=== PATIENT | female | born 1985 | race African-American/Black ===

== ENCOUNTER 2017-03-11 18:08 | Emergency (ER) | payer SELFPAY | END 2017-03-11 18:56 | disposition home or self-care (01) | LOC: ERS 18:08 | DX: K56.41 Fecal impaction (principal); E66.9 Obesity, unspecified; J45.909 Unspecified asthma, uncomplicated; F17.210 Nicotine dependence, cigarettes, uncomplicated | CPT/HCPCS: 99283 ==

== ENCOUNTER 2017-03-12 09:28 | Emergency (ER) | payer SELFPAY ==
[2017-03-12] MEDS ORDERED: Fleet Enema 133 ML BOT PR SCH (10:15)
--- NOTE | 2017-03-12 10:58 | RAD ---
ABDOMEN TWO VIEWS WITH ONE VIEW CHEST RADIOGRAPH: History: Pain. Comparison: Chest two view, 04-03-16. FINDINGS: The lingular opacity has improved. No focal airspace consolidation, pneumothorax, or effusion. On the upright view, no free air in the hemidiaphragms. No dilated air filled loops of large or small bowel. IMPRESSION: 1. Improved lingular opacity. 2. No acute intravascular or intraabdominal abnormality. POS: [facility]
[2017-03-12] MEDS ORDERED: Ondansetron ODT 8 MG TAB ONE (11:47)
[2017-03-12 12:27] LABS: BHCG - Serum Negative (NEGATIVE); Pregs Control Background? CLEAR/WHITE (CLR/WHITE); Pregs Control Bar Appear? YES (CONTROL BAR)
[2017-03-12] MEDS ORDERED: Ketorolac Tromethamine 30 MG/ML VIAL ONE (12:57)
== END 2017-03-12 13:24 | disposition home or self-care (01) ==
LOC: ERS 09:28
DX: K59.00 Constipation, unspecified (principal); J45.909 Unspecified asthma, uncomplicated; F17.210 Nicotine dependence, cigarettes, uncomplicated; Z79.899 Other long term (current) drug therapy
CPT/HCPCS: 36415; 74022; 84703; 96372; J1885

== ENCOUNTER 2017-07-08 23:58 | Emergency (ER) | payer SELFPAY ==
[2017-07-09] MEDS ORDERED: Albuterol Sulfate 2.5 mg/3 ml Neb ONE (00:14)
[2017-07-09] MEDS ORDERED: methylPREDNISolone Sod Succ/PF 125 MG/2 ML VIAL ONE (00:22)
[2017-07-09] MEDS ORDERED: Magnesium Sulfate 2 GM/100 ML BAG ONE (00:22)
[2017-07-09 00:43] LABS: ALT (SGPT) 21 U/L (8-55); AST (SGOT) 21 U/L (5-34); Albumin 3.8 g/dL (3.5-5.0); Alkaline Phosphatase 73 U/L (40-150); Anion Gap 11 mmol/L (10-20); BUN (Urea Nitrogen) 10 mg/dL (7.0-18.7); Bilirubin, Total 0.2 mg/dL (0.2-1.2); Calc. Creatinine Clearance 0 mL/min (70-130); Calcium 9.2 mg/dL (7.8-10.44); Carbon Dioxide 25 mmol/L (22-29); Chloride 106 mmol/L (98-107); Estimated GFR-MDRD 80; Globulin 3.4 g/dL (2.4-3.5); Glucose 122 mg/dL (70-105); Potassium 4.1 mmol/L (3.5-5.1); Protein, Total 7.2 g/dL (6.0-8.3); Sodium 138 mmol/L (136-145)
[2017-07-09 00:47] LABS: #Basophils 0.1 thou/uL (0.0-0.2); #Eosinphils 0.7 thou/uL (0.0-0.7); #Lymphocytes 4.8 thou/uL (1.20-3.40); #Monocytes 0.8 thou/uL (0.11-0.59); #Neutrophils 9.6 thou/uL (1.40-6.50); %Basophils 0.4 % (0.0-1.0); %Eosinophils 4.2 % (0.0-10.0); %Monocytes 4.9 % (0.0-10.0); %Neutrophils 60.5 % (42.0-75.0); Hemoglobin 9.6 g/dL (12.0-16.0); Hypochromia SLIGHT = 6-15 cells (100X) (0-5/hpf); MDiff Complete? YES; Mean Corpuscular HGB CONC 31.2 g/dL (32.0-36.0); Mean Corpuscular Hemoglobin 21.2 pg (27.0-31.0); Mean Corpuscular Volume 67.9 fl (81.0-99.0); Microcytosis MODERATE=15-30 cells (100X) (0-5/hpf); PLT Morphology Comment Appears Adequate; Platelet Count 803 thou/uL (130-400); RBC Distribution Width 17.3 % (11.5-14.5); Red Blood Cell (RBC) Count 4.51 mill/uL (4.20-5.40); White Blood Cell (WBC) Count 15.8 thou/uL (4.8-10.8)
--- NOTE | 2017-07-09 07:38 | RAD ---
SINGLE VIEW OF THE CHEST: COMPARISON: 04/03/16. HISTORY: Asthma and dyspnea. FINDINGS: Single view of the chest shows a normal sized cardiomediastinal silhouette. There is no evidence of c onsolidation, mass, or pleural effusion. The bones are unremarkable. IMPRESSION: No evidence of acute cardiopulmonary disease. POS: [facility]
== END 2017-07-09 02:06 | disposition home or self-care (01) ==
LOC: ERS 23:58
DX: J45.901 Unspecified asthma with (acute) exacerbation (principal); E66.9 Obesity, unspecified; F17.210 Nicotine dependence, cigarettes, uncomplicated
CPT/HCPCS: 71045; 80053; 85025; 94640; 94760; 96365; 96375; J2930; J3475; J7611

== ENCOUNTER 2018-04-27 14:07 | Emergency (ER) | payer SELFPAY ==
[2018-04-27 14:55] LABS: Bilirubin Negative (Negative); Blood, Urine Moderate (Negative); Clarity CLEAR (Clear); Glucose, Urine (Dipstick) Negative (Negative); Leukocyte Negative (Negative); Nitrite Negative (Negative); Protein, Urine (Dipstick) Negative (Neg-Trace); Specific Gravity, Urine 1.025 (1.002-1.036); Urobilinogen 0.2 mg/dL (0.2-1.0)
[2018-04-27 14:56] LABS: Bacteria/HPF None Seen HPF (None Seen); Hyaline Casts/LPF 0-3 HYALINE CAST LPF (0-3 Hyaline); Pathc Cast-AUWi Flag 0.29 (0-2.49); RBC/HPF 21-50 HPF (0-3); Squamous Epithelial 0-3 HPF (0-3); WBC/HPF 0-3 HPF (0-3)
[2018-04-27 15:36] LABS: Hemoglobin 7.4 g/dL (12.0-16.0); Mean Corpuscular HGB CONC 28.7 g/dL (32.0-36.0); Mean Corpuscular Hemoglobin 17.6 pg (27.0-31.0); Mean Corpuscular Volume 61.3 fL (78.0-98.0); Mean Platelet Volume 9.7 fL (7.4-10.4); Platelet Count 553 thou/uL (130-400); RBC Distribution Width 17.9 % (11.5-14.5); Red Blood Cell (RBC) Count 4.18 mill/uL (4.20-5.40); White Blood Cell (WBC) Count 12.3 thou/uL (4.8-10.8)
[2018-04-27 15:54] LABS: #Basophils 0.1 thou/uL (0.0-0.2); #Eosinphils 0.5 thou/uL (0.0-0.7); #Neutrophils 6.7 thou/uL (1.40-6.50); %Basophils 0.7 % (0.0-1.0); %Eosinophils 4.1 % (0.0-10.0); %Lymphocytes 32.3 % (21.0-51.0); %Monocytes 8.3 % (0.0-10.0); %Neutrophils 54.7 % (42.0-75.0); Anisocytosis SLIGHT = 6-15 cells (100X) (0-5/hpf); Hypochromia SLIGHT = 6-15 cells (100X) (0-5/hpf); MDiff Complete? YES; Microcytosis MODERATE=15-30 cells (100X) (0-5/hpf); Platelet Morphology Comment Appears Increased; Poikilocytosis SLIGHT = 6-15 cells (100X) (0-5/hpf); Target Cells SLIGHT = 2-5 cells (100X) (0-1/hpf)
[2018-04-27 17:40] LABS: Pregnancy Test - Urine (BHCG) Negative (Negative); Pregu Control Background? CLEAR/WHITE (CLR/WHITE); Pregu Control Bar Appear? YES (CONTROL BAR); Specific Gravity 1.025 (1.002-1.036)
[2018-04-27] MEDS ORDERED: Tranexamic Acid 1,000 MG/10 ML VIAL ONE (18:34)
--- NOTE | 2018-04-27 19:02 | ULT ---
ULTRASOUND PELVIS: 04/27/18 HISTORY: Pelvic pain. Negative test. COMPARISON: None. FINDINGS: Real time herring scale and color evaluation performed of a transabdominal only. No transvaginal approac h was performed. The uterus is enlarged measuring 17 x 12 x 11 cm. There is a mass within the uterus nearly encompassi ng the entire uterine volume measuring 15 x 10 x 8 cm. There is internal necrosis and vascularity. No normal myometrium is seen. The endometrium is obscured. No ovaries are seen. IMPRESSION: Large uterine mass may reflect a degenerating fibroid although given the patient's young age, gynecol ogic consultation advised. A malignancy is not totally excluded. MRI pelvis with and without contrast may be beneficial. POS: [facility]
[2018-04-27] MEDS ORDERED: Tranexamic Acid 650 MG TAB PO SCH (19:15)
[2018-04-29 01:11] LABS: Chlamydia by PCR Not Detected (NotDetected); GC by PCR Not Detected (NotDetected)
== END 2018-04-27 19:54 | disposition home or self-care (01) ==
LOC: ERS 14:07
DX: N93.9 Abnormal uterine and vaginal bleeding, unspecified (principal); D64.9 Anemia, unspecified; N85.9 Noninflammatory disorder of uterus, unspecified; J45.909 Unspecified asthma, uncomplicated; F17.210 Nicotine dependence, cigarettes, uncomplicated
CPT/HCPCS: 36415; 76856; 81003; 81015; 81025; 85025; 85060; 87480; 87491; 87510; 87591; 87660

== ENCOUNTER 2018-05-31 06:08 | Inpatient (IN) | payer OTHER, SELFPAY ==
[2018-05-31 07:03] LABS: #Eosinphils 0.5 thou/uL (0.0-0.7); #Neutrophils 6.9 thou/uL (1.40-6.50); %Basophils 0.2 % (0.0-1.0); %Eosinophils 4.1 % (0.0-10.0); %Lymphocytes 25.9 % (21.0-51.0); %Monocytes 8.8 % (0.0-10.0); %Neutrophils 61.1 % (42.0-75.0); Hemoglobin 9.4 g/dL (12.0-16.0); Mean Corpuscular HGB CONC 29.4 g/dL (32.0-36.0); Mean Corpuscular Hemoglobin 20.7 pg (27.0-31.0); Mean Corpuscular Volume 70.2 fL (78.0-98.0); Mean Platelet Volume 10.2 fL (7.4-10.4); Platelet Count 541 thou/uL (130-400); Red Blood Cell (RBC) Count 4.54 mill/uL (4.20-5.40); White Blood Cell (WBC) Count 11.4 thou/uL (4.8-10.8)
[2018-05-31 07:20] LABS: ALT (SGPT) 20 U/L (8-55); AST (SGOT) 22 U/L (5-34); Albumin 3.8 g/dL (3.5-5.0); Alkaline Phosphatase 71 U/L (40-150); Anion Gap 11 mmol/L (10-20); BUN (Urea Nitrogen) 8 mg/dL (7.0-18.7); Bilirubin, Total 0.3 mg/dL (0.2-1.2); CK (CPK) 78 U/L (29-168); Calc. Creatinine Clearance 0 mL/min (70-130); Calcium 9.2 mg/dL (7.8-10.44); Carbon Dioxide 25 mmol/L (22-29); Chloride 106 mmol/L (98-107); Estimated GFR-MDRD 86; Globulin 3.2 g/dL (2.4-3.5); Glucose 102 mg/dL (70-105); Potassium 3.8 mmol/L (3.5-5.1); Sodium 138 mmol/L (136-145)
[2018-05-31 07:55] LABS: Hypochromia MODERATE=16-30 cells (100X) (0-5/hpf); MDiff Complete? YES; Microcytosis MODERATE=15-30 cells (100X) (0-5/hpf); Platelet Morphology Comment Appears Increased; Polychromasia MODERATE = 3-4 cells (100X) (0-2/hpf)
[2018-05-31] MEDS ORDERED: Dexamethasone 4 MG TAB ONE (08:13)
--- NOTE | 2018-05-31 09:04 | RAD ---
PORTABLE CHEST: HISTORY: Chest pain. COMPARISON: A 07/08/2017 study. FINDINGS: Heart size is within normal limits. There is a right paratracheal mass which is very suggestive of m arked adenopathy. There are multiple bilateral pulmonary nodules. No infiltrative process seen. IMPRESSION: Bilateral pulmonary nodules and right paratracheal mass probably related to lymphadenopathy. Further evaluation with CT findings are very suspicious for a metastatic process. Findings discussed with Dr. Fay. CODE CR POS: [facility]
--- NOTE | 2018-05-31 09:29 | CT ---
FCT Chest Abd Pelvis W Con History: [Metastatic disease. Nontrauma. Lung mass.] Comparison: Chest radiograph same day Findings: There are innumerable round masses throughout the lungs greatest in the lower lobes. Index lesion left lower lobe measures up to 3 cm axial image 41. Index lesion right middle lobe measures up to 2.8 cm axial image 35. Large right paratracheal lymph node with central necrosis has a short axis with of 5 cm axial image 1 7. Index right hilar lymph node axial image 32 measures 2.8 cm in short axis. There is a hypodense mass within the liver axial image 51 measuring up to 1.4 cm and hepatic segment 7. Liver placement of normal myometrial parenchyma with heterogeneous tissue extending into the cervi x. Mass extends outside of the serosa in the left uterine fundus. The mass which extends outside the fundus on the left likely extends along the fallopian tube and left ovary and measures up to 11 cm ax ial image 88. No retroperitoneal adenopathy. The spleen is unremarkable. Adrenal glands are normal. N o hydronephrosis. No dilated loops of large or small bowel. Trace free fluid in the pelvis. No suspicious osteolytic or osteoblastic lesions. Impression: 1. Large uterine mass with extension outside of the serosa along the left ovarian ligament and involv ing the left ovary with size as above. There is near complete replacement of normal uterine parenchym a with this solid and cystic mass. Gynecologic oncologic consultation is recommended. 2. Extensive pulmonary metastatic disease. 3. 1.4 cm mass of the liver axial image 51 in hepatic segment 7. This is indeterminate for metastatic disease. 4. Right paratracheal and right hilar metastatic adenopathy. 5. Mildly prominent superficial inguinal lymph nodes and a single left gastric lymph node although no t enlarged per size criteria. Code CR: Dr. amaya
[2018-05-31] MEDS ORDERED: Morphine 4 MG/ML VIAL ONE (14:45)
[2018-05-31 15:09] VITALS: BMI 50.0
[2018-05-31] MEDS ORDERED: Sodium Chloride 0.9% 1,000 ML IV SCH (15:15)
[2018-05-31] MEDS ORDERED: Benzonatate 100 MG CAP PO PRN (16:19)
[2018-05-31] MEDS ORDERED: Ondansetron ODT 4 MG TAB PO PRN (16:19)
[2018-05-31] MEDS ORDERED: Ondansetron PF 4 MG/2 ML Vial IVP PRN (16:19)
[2018-05-31] MEDS ORDERED: Magnesium 2 GM/NS 0.9% 100 ML 2 GM in Premix Bag 1 BAG IVPB SCH (17:00)
[2018-05-31] MEDS ORDERED: Magnesium 2 GM/50 ML 2 GM in Premix Bag 1 BAG IVPB SCH (17:30)
[2018-05-31] MEDS ORDERED: Dexamethasone 4 MG in Sodium Chloride 0.9% 50 ML IVPB SCH (18:00)
[2018-05-31] MEDS ORDERED: Ferric Subsulfate 8 ML BOT ONE (18:26)
[2018-05-31] MEDS: Mometasone/Formoterol 120 PUFF INHALER INH SCH (19:18)
[2018-05-31] MEDS: Dexamethasone 4 mg/ml Vial SLOW IVP SCH (19:40)
[2018-05-31] MEDS: Famotidine 20 MG TAB PO SCH (21:13)
[2018-05-31] MEDS: Ferrous Sulfate 325 MG TAB PO SCH (21:13)
--- NOTE | 2018-05-31 23:08 | HP ---
PRIMARY CARE PROVIDER: Karen Mtz. CHIEF COMPLAINT: Shortness of breath. HISTORY OF PRESENT ILLNESS: This is a 33-year-old female who presented to [facility] complaining of persistent chest pain, shortness of breath, and decreased activity. The patient states she has a history of asthma, taking home albuterol metered-dose inhaler, using multiple times a day without relief. The patient also noted right-sided chest pain increasing with ambulation and unrelieved with a metered-dose inhaler use. The patient initially rated her chest pain as 9/10, sharp and unrelenting. The patient denies any weight changes, hematemesis, hemoptysis, or fever. The patient denied any recent travel history, trauma, or family members with similar symptoms. The patient had previously smoked up to half a pack of cigarettes, none currently. The patient did admit to history of marijuana use. In the emergency room, the patient underwent general evaluation including chest imaging showing bilateral pulmonary nodules with a right paratracheal mass suspicious for metastatic process. The patient also underwent subsequent chest, abdomen, and pelvic CT imaging showing a large uterine mass with extension into the left ovarian ligament. Extensive pulmonary metastatic process was noted with a 1.4 cm mass of the liver. Right hilar metastatic adenopathy noted. The patient received IV morphine sulfate in addition to dexamethasone and bronchodilator therapy with DuoNeb. PAST MEDICAL HISTORY: 1. Uterine mass, diagnosed April 2018. 2. Chronic asthma with albuterol metered-dose inhaler therapy. 3. Tobacco use. 4. History of marijuana use. 5. Morbid obesity. 6. Menorrhagia. PAST SURGICAL HISTORY: Reviewed and negative. CURRENT MEDICATIONS: Albuterol metered-dose inhaler 2 puffs inhaled q.4 hours p.r.n. ALLERGIES: NO KNOWN DRUG ALLERGIES. FAMILY HISTORY: Multiple family members with diabetes mellitus, COPD with cancer in her patient's maternal grandmother. SOCIAL HISTORY: The patient resides in [place], [place]. Accompanied by her mother and sister in the hospital. Smokes up to half a pack of cigarettes daily. None currently. History of marijuana use. Occasional alcohol use. REVIEW OF SYSTEMS: CONSTITUTIONAL: Negative for weight loss or gain, ability to conduct usual activities. SKIN: Negative for rash, itching. EYES: Negative for double vision, pain. ENT/MOUTH: Negative for nose bleeding, neck stiffness, pain, tenderness. CARDIOVASCULAR: Negative for palpitations, dyspnea on exertion, orthopnea. RESPIRATORY: Negative for shortness of breath, wheezing, cough, hemoptysis, fever or night sweats. GASTROINTESTINAL: Negative for poor appetite, abdominal pain, heartburn, nausea, vomiting, constipation, or diarrhea. GENITOURINARY: Negative for urgency, frequency, dysuria, nocturia. MUSCULOSKELETAL: Negative for pain, swelling. NEUROLOGIC/PSYCHIATRIC: Negative for anxiety, depression. ALLERGY/IMMUNOLOGIC: Negative for skin rash, bleeding tendency. Otherwise negative except as stated per HPI. PHYSICAL EXAMINATION: VITAL SIGNS: On admission, blood pressure 127/69, pulse 97, respiratory rate 20, temperature 99.7 degrees Fahrenheit, and O2 saturation 94% on room air. GENERAL APPEARANCE: This is a 33-year-old female, alert and oriented x3, pleasant, in no acute distress. HEENT: Pupils are equal, round, reactive to light and accommodation. Extraocular muscles are intact. No scleral icterus. No conjunctival injection. Nares patent. OP is clear. Teeth in fair repair. NECK: Supple. No cervical adenopathy. No thyromegaly. No carotid bruits. No JVD appreciated. Cervical spine with full active and passive range of motion. No meningeal signs noted. CHEST: Expiratory wheezes bilaterally. Diminished breath sounds in the bases bilaterally. CARDIOVASCULAR: S1, S2 without noted murmur, rub, or gallop. Heart sounds are distant. ABDOMEN: Obese. Landmarks are difficult to palpate due to patient's body habitus. No rebound or guarding noted. EXTREMITIES: Warm and dry with fair turgor. Minimal edema to the mid shins bilaterally. Pulses are palpable distally at the dorsalis pedis, posterior tibial, and popliteal arteries bilaterally. Capillary refill less than 2 seconds. NEUROLOGIC: Cranial nerves 2 through 12 are grossly intact. No focal or lateralizing signs appreciated. PERTINENT LABORATORY AND X-RAY FINDINGS: Complete metabolic profile within normal limits. CBC showed a white blood cell count of 11.4, hemoglobin 9.4, hematocrit 32, MCV 70, platelet count 541 with normal differential. Portable chest x-ray dated 05/31/2018, showed bilateral pulmonary nodules with right paratracheal mass suspicious for metastatic process. Pelvic ultrasound dated 04/27/2018, showed large uterine mass measuring 17 x 12 x 11 cm with internal necrosis and vascularity. CT of the chest, abdomen, and pelvis dated 05/31/2018, showed large uterine mass with extension to the left ovarian ligament and left ovary. Near complete replacement of normal uterine parenchyma with solid and cystic mass. Extensive pulmonary metastatic process noted with 1.4 cm mass in the liver. Right paratracheal and right hilar metastatic adenopathy. ASSESSMENT AND PLAN: 1. Uterine/ovarian neoplasm. The patient will be admitted to the Medical Oncology Unit. Suspect malignant metastatic process. We will consult Gynecological Services for evaluation and consideration for biopsy versus surgical intervention. 2. Right paratracheal mass/adenopathy. Suspect metastatic process given CT imaging findings. We will consult Pulmonology Service for further evaluation and consideration for bronchoscopy. 3. Asthma exacerbation. We will continue DuoNeb therapy q.4 hours. Add Dulera 2 puffs inhaled b.i.d. Add prednisone 40 mg p.o. daily. 4. Microcytic anemia. Suspect iron deficiency in the context of uterine/ovarian neoplasm. Check serum iron studies, ferritin, and reticulocyte count. Serial H and H monitoring. 5. Prophylaxis. SCDs while in bed. Pepcid 20 mg p.o. b.i.d.. 6. Code status is full. Surrogate medical decision maker is patient's mother. Job ID: [id number]
--- NOTE | 2018-06-01 00:03 | CON ---
DATE OF CONSULTATION: HISTORY OF PRESENT ILLNESS: A 33-year-old obese female, who weighs 136 kilos, came to the ER with an oxygen saturation of 94%, blood pressure 127/69, temperature 99, respiratory rate 20. She presented with chest pain and coughing and thought this was brought on by her asthma attack. She has been having the attack for the last several days, woke up with some chest pain. No fever or chills. She used an albuterol inhaler. She has no primary care physician. Upon arrival to the ER, a chest x-ray shows multiple lung nodules and a very large right paratracheal mass. She denies any prior history of TB or pneumonia. She is a smoker, smokes one-half pack a day. Smokes slightly more in the past. She denies any weight loss, fever, or chills. She was in the hospital here about a month ago with vaginal bleeding and saw a local [employer] doctor, is unclear what transpired. She said she was sent home. Her only medicine includes albuterol inhaler. PAST SURGICAL HISTORY: Previous surgeries, apparently none. CHRONIC MEDICATIONS: Albuterol. 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 REVIEW OF SYSTEMS: Ten-point negative. PHYSICAL EXAMINATION: GENERAL: She is in no acute respiratory distress. VITAL SIGNS: Sats 93%, respiratory rate 18, temperature 99, pulse 98, blood pressure . CHEST: Revealed diffuse wheezing. CARDIAC: Normal S1 and S2. No gallops. ABDOMEN: No masses. LABORATORY DATA: White count is 11,000, H and H 9 and 31, platelet count is 541. Lytes are normal. As noted, a CT of abdomen, chest, and pelvis was performed, which shows extensive bilateral lung nodules, very large right paratracheal mass. Additionally, there was seen a very complex uterine mass extension along the ovary. 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 I added Decadron to her present treatment. She is going to have a biopsy of the uterine-ovarian mass. If this is non-diagnostic, we will consider consulting CV Surgery for a mediastinoscopy and biopsy. In the meantime, I agree with the present neb treatment and supportive care. We will follow. Consultation note, 70 minutes, 50% direct patient care. Job ID: [id number]
[2018-06-01] MEDS: Dexamethasone 4 mg/ml Vial SLOW IVP SCH ×4 (00:36→18:34)
--- NOTE | 2018-06-01 02:59 | CON ---
DATE OF CONSULTATION: 05/31/2018 PRIMARY REFERRING PHYSICIAN: Dr. Devyn Anderson. REASON FOR REFERRAL: Uterine mass. HISTORY OF PRESENT ILLNESS: The patient is a 33-year-old, G0, P0 female who presented to the emergency room on 05/31/2018 with shortness of breath. Her workup demonstrated masses present in her chest, liver, and uterus as seen by CT scan. Given the extensive presentation of abnormalities in the uterus PHOTOSTAT OPERATOR was consulted for evaluation. In discussion with the patient, the patient reports that she has a 3-month history of vaginal bleeding, which just stopped last week. Prior to this, she reports regular monthly periods lasting 7 days at a time. She denies any history of Pap smear in the past. She is sexually active and smokes about a half pack per day for the last several years and most recently reduced that to 2 cigarettes a day in the last month. The patient was seen here in the emergency room approximately 7-10 days ago with instructions to follow up with PHOTOSTAT OPERATOR as her chief complaint was vaginal bleeding. She was given a course of Lysteda and Provera, which she reports was briefly helpful and then was seen at [facility] where she was given some other medication she can't report that seem to have helped with her bleeding. PAST MEDICAL HISTORY: Includes obesity, asthma. PAST SURGICAL HISTORY: Negative. SOCIAL HISTORY: Reports social drinking monthly, smoking marijuana and tobacco use. ALLERGIES: NO KNOWN DRUG ALLERGIES. CURRENT MEDICATIONS: Include albuterol. MEDICATIONS HERE IN THE HOSPITAL: Include: 1. Vitamin B12. 2. Steroids. 3. Pepcid. 4. Ipratropium. 5. Magnesium. 6. Zofran p.r.n. PHYSICAL EXAMINATION: VITAL SIGNS: About the time of my evaluation, blood pressure 121/71, temperature 98.1, pulse of 99, respiratory rate 18, saturating 93 to 95% percent on room air. GENERAL: On my evaluation, the patient was not in any acute distress, though she did easily get out of breath with exertion. She was alert, oriented, cooperative, and pleasant to interact with. ABDOMEN: Soft. : Perineum without any masses lesions or erythema. GENITOURINARY: Vaginal exam, there was no evidence of bleeding at that time. CERVIX: Visibility of the cervix was difficult, but achievable. There did not appear to have any gross abnormalities. At this time, an endometrial biopsy was performed. The patient prior to the examination was counseled on the risks and benefits of this exam with the primary risk being bleeding. The patient accepted these risks, expressed understanding and desired to proceed and provided informed written consent. At this point, the cervix was cleansed with Betadine and grasped with a single-tooth tenaculum. An endometrial pipette was then used and inserted into the cervical os and fairly easily was introduced into the uterine cavity, which was larger than 12 cm. The suction was created and endometrial sampling was performed with some difficulty, but on review of the sample appeared to have tissue with some blood, old blood mixed into it. At this point of the procedure, the patient was having some difficulty tolerating and once the sampling was completed, the procedure was completed. The single-tooth tenaculum was removed from the anterior lip, which had been applied without difficulty or pain. There was good hemostasis, it was spontaneous on removal and the speculum then was removed. The patient tolerated the procedure well and exam well. A bimanual exam was not performed given the level of obesity that she has and difficulty it would have been for any useful information and difficulty reaching the uterus. The patient was returned back to her room with instructions that we would be sending this off for pathology and results should be back in a couple of days. CT scan findings demonstrated a large uterine mass extension outside of the serosa along the left ovarian ligament and involving the left ovary with size as above and near complete replacement of normal uterine parenchyma. There also appeared to be extensive pulmonary metastatic disease with right peritracheal and right hilar metastatic adenopathy and a 1.4 cm mass in the liver. ASSESSMENT AND PLAN: The patient is a 33-year-old nulliparous female who by history reports normal monthly periods until 3 months ago. However, on CT findings, there is grave concern for endometrial cancer or uterine cancer. An endometrial sample was collected and has been sent to Pathology for review. The patient does need evaluation by Gynecology/Oncology as soon as feasible. We have discussed the option of going to [facility] or to the [facility]. The patient did not have any particular preference. Sree Jennifer Mims is who we typically have referred the patient to in the past and had good feedback in the [facility]. Added to her lab work, a CA-125, endometrial pathology should be back in a couple days. Job ID: [id number]
[2018-06-01 04:37] LABS: Reticulocyte Count 5.7 % (0.5-1.5)
[2018-06-01 04:45] LABS: Band 6 % (5-11); Hemoglobin 9.1 g/dL (12.0-16.0); Lymphocytes 6 % (21-51); MDiff Complete? YES; Mean Corpuscular HGB CONC 28.5 g/dL (32.0-36.0); Mean Corpuscular Hemoglobin 20.6 pg (27.0-31.0); Mean Corpuscular Volume 72.2 fL (78.0-98.0); Mean Platelet Volume 10.6 fL (7.4-10.4); Monocytes 1 % (0-10); Neutrophil 87 % (42-75); Platelet Count 573 thou/uL (130-400); Platelet Morphology Comment Appears Increased; RBC Distribution Width 30.1 % (11.5-14.5); Red Blood Cell (RBC) Count 4.41 mill/uL (4.20-5.40); White Blood Cell (WBC) Count 21.6 thou/uL (4.8-10.8)
[2018-06-01 04:53] LABS: Iron 17 ug/dL (50-170); Iron Binding Capacity, Total 288 mcg/dL (265-497)
[2018-06-01 04:54] LABS: ALT (SGPT) 20 U/L (8-55); AST (SGOT) 20 U/L (5-34); Albumin 3.7 g/dL (3.5-5.0); Alkaline Phosphatase 70 U/L (40-150); Anion Gap 15 mmol/L (10-20); BUN (Urea Nitrogen) 12 mg/dL (7.0-18.7); Bilirubin, Total 0.2 mg/dL (0.2-1.2); Calc. Creatinine Clearance 194 mL/min (70-130); Calcium 9.3 mg/dL (7.8-10.44); Carbon Dioxide 22 mmol/L (22-29); Chloride 106 mmol/L (98-107); Estimated GFR-MDRD 89; Globulin 3.2 g/dL (2.4-3.5); Glucose 195 mg/dL (70-105); Iron 20 ug/dL (50-170); Iron Binding Capacity, Total 296 mcg/dL (265-497); Potassium 4.6 mmol/L (3.5-5.1); Protein, Total 6.9 g/dL (6.0-8.3); Sodium 138 mmol/L (136-145)
[2018-06-01] MEDS: Morphine 2 MG/ML SYRINGE SLOW IVP PRN ×3 (05:18→19:38)
[2018-06-01] MEDS: Mometasone/Formoterol 120 PUFF INHALER INH SCH ×2 (07:40→18:32)
[2018-06-01] MEDS ORDERED: IRON SUCROSE COMPLEX 100 MG/5 ML SLOW IVP SCH (08:45)
--- NOTE | 2018-06-01 09:54 | PDOC.EVN ---
Event Note - Event Note Event Note: Following up on consult done by Dr. Crystal yesterday. 33 yo BF G0 with suspected metastatic disease and enlarged uterus with adnexal extension seen on imaging. Endometrial biopsy performed yesterday PM; results are pending. Ca125 drawn and also pending. Pt. reports mild spotting with cramping this AM. . Plan: Awaiting results, will follow.
[2018-06-01] MEDS ORDERED: Sodium Ferric Gluconate 62.5 MG/5 ML AMP SLOW IVP SCH (10:00)
--- NOTE | 2018-06-01 10:06 | PRG ---
DATE OF SERVICE: 06/01/2018 SUBJECTIVE: This morning, she says she is better. OBJECTIVE: VITAL SIGNS: Sats are 96% on room air, respiratory rate 18, temperature 97, pulse 93, and blood pressure 140/93. CHEST: Decreased breath sounds. Wheezing, right greater than left. CARDIAC: Sinus tach. ABDOMEN: Soft and massive. LABORATORY STUDIES: White count is 21,000, hemoglobin and hematocrit of 9 and 31, platelet count is normal. ASSESSMENT: 1. Extensive pulmonary metastasis. 2. Morbid obesity. 3. Asthma. She is status post endometrial biopsy yesterday. PLAN: Continue Decadron neb treatments. Await path. Pulmonary will follow. Job ID: [id number]
[2018-06-01] MEDS: Famotidine 20 MG TAB PO SCH ×2 (10:40→20:59)
[2018-06-01] MEDS: Multivitamin W/ Minerals 1 TAB PO SCH (10:40)
[2018-06-01] MEDS: Acetaminophen 500 MG TAB PO PRN (10:40)
[2018-06-01] MEDS: Ferrous Sulfate 325 MG TAB PO SCH ×2 (10:40→20:59)
[2018-06-01] MEDS: Cyanocobalamin (Vitamin B-12) 1,000 MCG TAB PO SCH (10:41)
[2018-06-01] MEDS ORDERED: Iron, Sodium Ferric Gluconate 250 MG in Sodium Chloride 0.9% 100 ML IVPB SCH (11:00)
--- NOTE | 2018-06-01 13:55 | PDOC.PN ---
- Subjective Encounter Start Date: 06/01/18 Encounter Start Time: 13:53 Subjective: feels Ok but still with on and off pain in chest - Objective Resuscitation Status - Order Detail: 05/31/18 16:12 Resuscitation Status Routine Resuscitation Status: FULL: Full Resuscitation MAR Reviewed: Yes Vital Signs & Weight: Vital Signs (12 hours) Temp Pulse Resp BP BP Pulse Ox 06/01/18 12:00 98.3 F 110 H 18 153/88 H 95 06/01/18 10:49 100 16 98 06/01/18 08:00 97.6 F 93 18 141/93 H 94 L 06/01/18 07:41 93 16 98 06/01/18 07:40 93 20 97 06/01/18 04:00 98.0 F 99 18 121/59 L 99 06/01/18 02:24 91 16 98 Weight Weight 300 lb 9.6 oz I&O: 05/31/18 06/01/18 06/02/18 06:59 06:59 06:59 Intake Total 250 Balance 250 Result Diagrams: 06/01/18 04:21 06/01/18 04:21 Phys Exam - Physical Examination Constitutional: NAD HEENT: PERRLA, moist MMs, sclera anicteric, oral pharynx no lesions Neck: no nodes, no JVD, supple, full ROM Respiratory: no wheezing, no rales, no rhonchi, clear to auscultation bilateral Cardiovascular: RRR, no significant murmur Gastrointestinal: soft, non-tender, no distention, positive bowel sounds Musculoskeletal: no edema, pulses present Neurological: non-focal, normal sensation, moves all 4 limbs Dx/Plan (1) Dyspnea Code(s): R06.00 - DYSPNEA, UNSPECIFIED Status: Acute Comment: Lung nodules. ? unclear etiology.? Mets (2) Leucocytosis Code(s): D72.829 - ELEVATED WHITE BLOOD CELL COUNT, UNSPECIFIED Status: Acute Comment: Likley due to decadron (3) Uterine mass Code(s): N85.9 - NONINFLAMMATORY DISORDER OF UTERUS, UNSPECIFIED Status: Chronic Comment: s/p Bx yesterday (4) Morbid obesity with BMI of 50.0-59.9, adult Code(s): E66.01 - MORBID (SEVERE) OBESITY DUE TO EXCESS CALORIES; Z68.43 - BODY MASS INDEX (BMI) 50-59.9, ADULT Status: Chronic (5) Lung nodules Status: Chronic (6) RAMO (iron deficiency anemia) Code(s): D50.9 - IRON DEFICIENCY ANEMIA, UNSPECIFIED Status: Chronic - Plan plan discussed w/ family, respiratory therapy, out of bed/ambulate, DVT proph w/ SCDs Awaiting Biopsy results. Discussed w Building Services Coordinator OB-Gas Meter Repairer -: will need referral based on Bx results.Unfunded however -: HD stable.cont supportive care -: Trend WBC.no clear source of infection.wayne Shields.check UA. -: ? Metastatic carcinoma but unknown primary. * . Review of Systems - Review of Systems Constitutional: weakness, malaise. negative: fever, chills, sweats, other ENT: negative: Ear Pain, Ear Discharge, Nose Pain, Nose Discharge, Nose Congestion, Mouth Pain, Mouth Swelling, Throat Pain, Throat Swelling, Other Respiratory: negative: Cough, Dry, Shortness of Breath, Hemoptysis, SOB with Excertion, Pleuritic Pain, Sputum, Wheezing Cardiovascular: chest pain. negative: palpitations, orthopnea, paroxysmal nocturnal dyspnea, edema, light headedness, other Gastrointestinal: Abdominal Pain. negative: Nausea, Vomiting, Diarrhea, Constipation, Melena, Hematochezia, Other Genitourinary: negative: Dysuria, Frequency, Incontinence, Hematuria, Retention , Other Musculoskeletal: negative: Neck Pain, Shoulder Pain, Arm Pain, Back Pain, Hand Pain, Leg Pain, Foot Pain, Other Skin: negative: Rash, Lesions, Robbie, Bruising, Other Neurological: negative: Weakness, Numbness, Incoordination, Change in Speech, Confusion, Seizures, Other - Medications/Allergies Allergies/Adverse Reactions: Allergies Allergy/AdvReac Type Severity Reaction Status Date / Time No Known Drug Allergies Allergy Verified 05/31/18 15:11 Medications: Current Medications Acetaminophen (Tylenol) 1,000 mg PO Q6H PRN PRN Reason: Mild Pain (1-3) Last Admin: 06/01/18 10:40 Dose: 1,000 mg Albuterol/Ipratropium (Duoneb) 3 ml NEB [id number] ELIZABETH Last Admin: 06/01/18 10:49 Dose: 3 ml Benzonatate (Tessalon) 100 mg PO Q6H PRN PRN Reason: Cough Cyanocobalamin (Vitamin B-12) 1,000 mcg PO DAILY [facility] Last Admin: 06/01/18 10:41 Dose: 1,000 mcg Dexamethasone (Decadron) 4 mg SLOW IVP Q6HR [facility] Last Admin: 06/01/18 13:01 Dose: 4 mg Famotidine (Pepcid) 20 mg PO BID [facility] Last Admin: 06/01/18 10:40 Dose: 20 mg Ferrous Sulfate (Feosol) 325 mg PO BID [facility] Last Admin: 06/01/18 10:40 Dose: 325 mg Ferric Sodium Gluconate Complex 250 mg/ Sodium Chloride 120 mls @ 120 mls/hr IVPB NOW [facility] Stop: 06/01/18 18:00 Last Admin: 06/01/18 13:02 Dose: 120 mls Iron/Minerals/Multivitamins (Theragran M) 1 tab PO DAILY [facility] Last Admin: 06/01/18 10:40 Dose: 1 tab Mometasone Furoate/Formoterol Fumar (Dulera 200 Mcg/5 Mcg Inhaler) 2 puff INH BID-RT [facility] Last Admin: 06/01/18 07:40 Dose: 2 puff Morphine Sulfate (Morphine) 2 mg SLOW IVP Q6H PRN PRN Reason: Moderate to Severe Pain (6-10) Last Admin: 06/01/18 10:41 Dose: 2 mg Ondansetron HCl (Zofran Odt) 4 mg PO Q6H PRN PRN Reason: Nausea/Vomiting Ondansetron HCl (Zofran) 4 mg IVP Q6H PRN PRN Reason: Nausea/Vomiting
[2018-06-01 16:46] LABS: Bilirubin Negative (Negative); Blood, Urine Trace (Negative); Clarity CLEAR (Clear); Glucose, Urine (Dipstick) Negative (Negative); Leukocyte Negative (Negative); Nitrite Negative (Negative); Protein, Urine (Dipstick) Negative (Neg-Trace); Specific Gravity, Urine 1.026 (1.002-1.036); Urobilinogen 0.2 mg/dL (0.2-1.0); pH, Urine 6.5 (5.0-9.0)
[2018-06-01 16:51] LABS: Bacteria/HPF None Seen HPF (None Seen); Hyaline Casts/LPF 0-3 HYALINE CAST LPF (0-3 Hyaline); Pathc Cast-AUWi Flag 0.13 (0-2.49); RBC/HPF 0-3 HPF (0-3); WBC/HPF None Seen HPF (0-3)
[2018-06-01 16:54] LABS: Urine Culture Reflex No No
--- NOTE | 2018-06-01 17:56 | CON ---
DATE OF CONSULTATION: REASON FOR CONSULTATION: Metastatic disease. HISTORY OF PRESENT ILLNESS: Ms. Gil is a pleasant 33-year-old female, who presented to the emergency room with complaints of chest pain. She had a chest x-ray which showed a large right paratracheal mass. There is multiple bilateral pulmonary nodules. She underwent a CT scan of her chest, abdomen, and pelvis. There were innumerable round masses throughout the lungs. There was a left lower lobe lesion measuring up to 3 cm. A right middle lobe lesion measuring 2.8 cm. There was a large right paratracheal lymph node with central necrosis measuring 5 cm. Right hilar lymph node measuring 2.8 cm. There was a nonspecific hypodense mass in the liver, measuring 1.4 cm. There was a large heterogeneous mass in her pelvis. It extends outside the serosa to the left uterine fundus, it extends along the fallopian tube, then left ovary and it measures 11 cm. This is all consistent with metastatic malignancy. ANIMAL NURSERY WORKER hospitalists were admitted and has performed a vaginal exam with biopsies from the endometrium and are currently pending. The patient does have a history of four months of vaginal bleeding, starting in January of last year. She was seen in emergency room for vaginal bleeding in April. A pelvic ultrasound was done at that time which did show the uterine mass. There was internal necrosis and vascularity. The patient was referred as an outpatient to ANIMAL NURSERY WORKER but has not had any further workup on this mass since April. The patient currently denies of nonspecific chest pain and abdominal cramping. She states that the vaginal bleeding has stopped. She was noted to have microcytic anemic with a hemoglobin of 7.4. She has received a dose of IV iron on this hospitalization and in the past. PAST MEDICAL HISTORY: 1. Asthma. 2. Iron deficiency anemia. PAST SURGICAL HISTORY: None. ALLERGIES: NO KNOWN DRUG ALLERGIES. HOME MEDICATIONS: Albuterol inhaler. FAMILY HISTORY: Grandmother with breast cancer. No history of uterine, cervical, or ovarian cancer. SOCIAL HISTORY: She is single. No children. Smokes half pack of cigarettes daily. No alcohol or illicit drug use. REVIEW OF SYSTEMS: CONSTITUTIONAL: No fever, chills, or night sweats. EYES: No blurred or double vision. ENT: No pain, hoarseness, sore throat, or dysphagia. CV: Positive for chest pain. No palpitations or syncope. RESPIRATORY: No shortness of breath, dyspnea on exertion, or orthopnea. GI: No nausea, vomiting, diarrhea, or constipation. Positive for abdominal pain. : No dysuria or hematuria. MUSCULOSKELETAL: No joint or back pain. SKIN: No rash or pruritus. HEMATOLOGIC: Positive for vaginal bleeding. NEUROLOGIC: No weakness, headache, numbness, tingling, or seizure activity. PSYCHIATRY: No anxiety or depression. PHYSICAL EXAMINATION: VITAL SIGNS: Temperature is 98.3, pulse is 100, respiratory rate 20, BP is 153/ 88, and she is 97% on room air. GENERAL: This is an obese female, in no acute distress. HEENT: Normocephalic and atraumatic. Pupils are equal and reactive to light. NECK: Supple. CV: Regular rate and rhythm. LUNGS: Clear. ABDOMEN: Soft and nontender. No masses palpable. EXTREMITIES: No clubbing, cyanosis, or edema. SKIN: No rash. HEMATOLOGIC: No petechiae or purpura. NEUROLOGIC: Nonfocal. PSYCHIATRY: She is alert, oriented, and appropriate. PERTINENT LABS AND X-RAYS: Current WBCs 21.6, hemoglobin 9.1, hematocrit 31.9, platelet count 573,000. She has 87% neutrophils, 6% bands, 6% lymphocytes, retic count is 5.7. Sodium is 138, potassium is 4.6, chloride is 106, CO2 is 22, BUN is 12, creatinine is 0.88, calcium is 9.3. Iron is 17, TIBC is 288, iron saturation is 6%, ferritin is 26, total bilirubin is 0.2, AST is 20, ALT is 20, alkaline phosphatase is 70. Creatine kinase is 78. Troponin is negative. Serum total protein is 6.9, albumin is 3.7, globulin is 3.2. CA-125 is 16.7. Urine is negative for . ASSESSMENT: 1. Metastatic disease with large pelvic mass. 2. iron deficiency anemia secondary to vaginal bleeding. DISCUSSION: Case was discussed with Dr. Engel. 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 Biopsy is currently pending. However, given the difficulty of the biopsy, we may need a biopsy of one of her mediastinal lymph nodes to confirm diagnosis. She will need neoadjuvant chemotherapy. She can follow up in our clinic and be referred to Dr. Mims in [place] for surgical evaluation if needed. A Financial counselor seen the patient to begin financial screening. Her pain is currently controlled and should be able to go home once we have a confirmed diagnosis. Thank you for the consult. Job ID: [id number] SAY
[2018-06-02] MEDS: Dexamethasone 4 mg/ml Vial SLOW IVP SCH ×2 (00:22→05:38)
[2018-06-02] MEDS: Acetaminophen 500 MG TAB PO PRN ×2 (00:48→08:33)
[2018-06-02] MEDS: Mometasone/Formoterol 120 PUFF INHALER INH SCH ×2 (06:02→18:19)
[2018-06-02] MEDS: Multivitamin W/ Minerals 1 TAB PO SCH (08:34)
[2018-06-02] MEDS: Ferrous Sulfate 325 MG TAB PO SCH ×2 (08:34→20:19)
[2018-06-02] MEDS: Cyanocobalamin (Vitamin B-12) 1,000 MCG TAB PO SCH (08:34)
[2018-06-02] MEDS: Famotidine 20 MG TAB PO SCH ×2 (08:35→20:19)
--- NOTE | 2018-06-02 08:57 | PRG ---
DATE OF SERVICE: 06/02/2018 SUBJECTIVE: This morning, she is better. She is less short of breath, less cough and wheezing. OBJECTIVE: VITAL SIGNS: Saturating 96% on room air, temperature 97, and blood pressure 133/80. CHEST: Minimal wheezing, if any. CARDIAC: Normal S1, S2. No gallops. ABDOMEN: No mass. IMPRESSION: 1. Asthma, multiple metastatic lung masses. 2. Pelvic mass. PLAN: 1. 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 2. Otherwise switch her to oral prednisone. Continue neb treatments. Job ID: [id number]
[2018-06-02] MEDS ORDERED: Docusate 100 MG CAP PO PRN (10:21)
[2018-06-02] MEDS ORDERED: Polyethylene Glycol 3350 17 GM Packet PO SCH (10:30)
--- NOTE | 2018-06-02 13:59 | PDOC.PN ---
- Subjective Encounter Start Date: 06/02/18 Encounter Start Time: 13:57 Subjective: feels better today but very constipated - Objective Resuscitation Status - Order Detail: 05/31/18 16:12 Resuscitation Status Routine Resuscitation Status: FULL: Full Resuscitation MAR Reviewed: Yes Vital Signs & Weight: Vital Signs (12 hours) Temp Pulse Resp BP Pulse Ox 06/02/18 13:31 93 18 96 06/02/18 09:39 88 18 96 06/02/18 08:00 98.7 F 98 18 133/80 96 06/02/18 06:02 91 16 96 06/02/18 05:59 91 16 96 Weight Weight 300 lb 9.6 oz I&O: 06/01/18 06/02/18 06/03/18 06:59 06:59 06:59 Intake Total 250 2200 Balance 250 2200 Result Diagrams: 06/01/18 04:21 06/01/18 04:21 Phys Exam - Physical Examination Constitutional: NAD HEENT: PERRLA, moist MMs, sclera anicteric, oral pharynx no lesions Neck: no nodes, no JVD, supple, full ROM Respiratory: no wheezing, no rales, no rhonchi, clear to auscultation bilateral Cardiovascular: RRR, no significant murmur Gastrointestinal: soft, non-tender, no distention, positive bowel sounds Musculoskeletal: no edema, pulses present Neurological: non-focal, normal sensation, moves all 4 limbs Psychiatric: normal affect, A&O x 3 Skin: no rash Dx/Plan (1) Dyspnea Code(s): R06.00 - DYSPNEA, UNSPECIFIED Status: Acute Comment: Lung nodules. ? unclear etiology.? Mets (2) Leucocytosis Code(s): D72.829 - ELEVATED WHITE BLOOD CELL COUNT, UNSPECIFIED Status: Acute Comment: Likley due to decadron (3) Uterine mass Code(s): N85.9 - NONINFLAMMATORY DISORDER OF UTERUS, UNSPECIFIED Status: Chronic Comment: s/p Bx.results pending (4) Morbid obesity with BMI of 50.0-59.9, adult Code(s): E66.01 - MORBID (SEVERE) OBESITY DUE TO EXCESS CALORIES; Z68.43 - BODY MASS INDEX (BMI) 50-59.9, ADULT Status: Chronic (5) Lung nodules Status: Chronic (6) RAOM (iron deficiency anemia) Code(s): D50.9 - IRON DEFICIENCY ANEMIA, UNSPECIFIED Status: Chronic - Plan respiratory therapy, incentive spirometry, DVT proph w/SCDs awaiting Biopsy results.May need Bronch Bx if endometrial not informative -: add bowel regimen. -: HD stable. * . Review of Systems - Review of Systems Constitutional: negative: fever, chills, sweats, weakness, malaise, other ENT: negative: Ear Pain, Ear Discharge, Nose Pain, Nose Discharge, Nose Congestion, Mouth Pain, Mouth Swelling, Throat Pain, Throat Swelling, Other Respiratory: negative: Cough, Dry, Shortness of Breath, Hemoptysis, SOB with Excertion, Pleuritic Pain, Sputum, Wheezing Cardiovascular: negative: chest pain, palpitations, orthopnea, paroxysmal nocturnal dyspnea, edema, light headedness, other Gastrointestinal: Constipation. negative: Nausea, Vomiting, Abdominal Pain, Diarrhea, Melena, Hematochezia, Other Genitourinary: negative: Dysuria, Frequency, Incontinence, Hematuria, Retention , Other Musculoskeletal: negative: Neck Pain, Shoulder Pain, Arm Pain, Back Pain, Hand Pain, Leg Pain, Foot Pain, Other Neurological: negative: Weakness, Numbness, Incoordination, Change in Speech, Confusion, Seizures, Other - Medications/Allergies Allergies/Adverse Reactions: Allergies Allergy/AdvReac Type Severity Reaction Status Date / Time No Known Drug Allergies Allergy Verified 05/31/18 15:11 Medications: Current Medications Acetaminophen (Tylenol) 1,000 mg PO Q6H PRN PRN Reason: Mild Pain (1-3) Last Admin: 06/02/18 08:33 Dose: 1,000 mg Albuterol/Ipratropium (Duoneb) 3 ml NEB [id number] [facility] Last Admin: 06/02/18 13:31 Dose: 3 ml Benzonatate (Tessalon) 100 mg PO Q6H PRN PRN Reason: Cough Cyanocobalamin (Vitamin B-12) 1,000 mcg PO DAILY [facility] Last Admin: 06/02/18 08:34 Dose: 1,000 mcg Docusate Sodium (Colace) 100 mg PO BIDPRN PRN PRN Reason: Constipation Famotidine (Pepcid) 20 mg PO BID [facility] Last Admin: 06/02/18 08:35 Dose: 20 mg Ferrous Sulfate (Feosol) 325 mg PO BID [facility] Last Admin: 06/02/18 08:34 Dose: 325 mg Iron/Minerals/Multivitamins (Theragran M) 1 tab PO DAILY [facility] Last Admin: 06/02/18 08:34 Dose: 1 tab Mometasone Furoate/Formoterol Fumar (Dulera 200 Mcg/5 Mcg Inhaler) 2 puff INH BID-RT [facility] Last Admin: 06/02/18 06:02 Dose: 2 puff Morphine Sulfate (Morphine) 2 mg SLOW IVP Q6H PRN PRN Reason: Moderate to Severe Pain (6-10) Last Admin: 06/01/18 19:38 Dose: 2 mg Ondansetron HCl (Zofran Odt) 4 mg PO Q6H PRN PRN Reason: Nausea/Vomiting Ondansetron HCl (Zofran) 4 mg IVP Q6H PRN PRN Reason: Nausea/Vomiting Polyethylene Glycol (Miralax) 17 gm PO DAILYPRN PRN PRN Reason: Constipation Prednisone (Prednisone) 20 mg PO QAM-WM [facility] Stop: 06/08/18 08:01
[2018-06-02] MEDS ORDERED: ISOVUE-370 76%-LOCM 1 ML ONE (14:43)
--- NOTE | 2018-06-02 15:32 | PDOC.EVN ---
Event Note - Event Note Event Note: Endometrial sampling is benign with normal proliferative endometrium and no evidence of malignancy. Uterine sarcoma is a real possibility. Pt needs to be seen by gynecology oncology. There has been some thought in performing a percutaneous biopsy. I have reached out to Dr Jennifer Mims to see if this is acceptable in her expert opinion or if transfer of care with out a clear diagnosis is more appropriate.
[2018-06-02] MEDS ORDERED: Temazepam 15 MG CAP PO PRN (20:45)
[2018-06-03] MEDS: Mometasone/Formoterol 120 PUFF INHALER INH SCH ×2 (05:58→19:05)
[2018-06-03] MEDS ORDERED: Polyethylene Glycol 3350 17 GM Packet PO PRN (06:00)
[2018-06-03] MEDS: Ferrous Sulfate 325 MG TAB PO SCH ×2 (08:24→21:00)
[2018-06-03] MEDS: Famotidine 20 MG TAB PO SCH ×2 (08:24→21:00)
[2018-06-03] MEDS: Cyanocobalamin (Vitamin B-12) 1,000 MCG TAB PO SCH (08:25)
[2018-06-03] MEDS: predniSONE 20 MG TAB PO SCH (08:25)
[2018-06-03] MEDS: Multivitamin W/ Minerals 1 TAB PO SCH (08:25)
[2018-06-03] MEDS: Acetaminophen 500 MG TAB PO PRN (09:12)
--- NOTE | 2018-06-03 09:53 | PRG ---
DATE OF SERVICE: 06/03/2018 SUBJECTIVE: A 33-year-old female, this morning pulmonary pack, she is much improved. OBJECTIVE: VITAL SIGNS: Saturations are 98 on room air, respiratory rate 16, temperature 98, pulse 89, blood pressure 112/64. CHEST: No wheezing. CARDIAC: Normal S1, S2. No gallops. ABDOMEN: No masses. IMPRESSION AND PLAN: Multiple lung masses secondary to CLINICAL SOCIOLOGIST malignancy, status post endometrial biopsy negative. Pulmonary pack, continue present treatment. Pulmonary will follow at a distance. Further disposition as per Oncology and CLINICAL SOCIOLOGIST. Job ID: [id number]
[2018-06-03] MEDS ORDERED: traMADol HCl 50 MG TAB PO PRN ×2 (10:49)
[2018-06-03] MEDS ORDERED: Ketorolac Tromethamine 30 MG/ML VIAL IVP SCH (11:00)
--- NOTE | 2018-06-03 13:06 | PDOC.PN ---
- Subjective Encounter Start Date: 06/03/18 Encounter Start Time: 13:05 Subjective: feels better. no new complaints excpet for some abd pain - Objective Resuscitation Status - Order Detail: 05/31/18 16:12 Resuscitation Status Routine Resuscitation Status: FULL: Full Resuscitation MAR Reviewed: Yes Vital Signs & Weight: Vital Signs (12 hours) Temp Pulse Resp BP Pulse Ox 06/03/18 09:29 93 18 98 06/03/18 08:00 98.8 F 89 16 112/64 98 06/03/18 05:58 89 16 97 06/03/18 05:52 89 16 97 06/03/18 02:07 91 16 98 Weight Weight 300 lb 9.6 oz I&O: 06/02/18 06/03/18 06/04/18 06:59 06:59 06:59 Intake Total 2200 1010 480 Balance 2200 1010 480 Result Diagrams: 06/01/18 04:21 06/01/18 04:21 Phys Exam - Physical Examination Constitutional: NAD HEENT: PERRLA, moist MMs, sclera anicteric, oral pharynx no lesions Neck: no nodes, no JVD, supple, full ROM Respiratory: no wheezing, no rales, no rhonchi, clear to auscultation bilateral Cardiovascular: RRR, no significant murmur Gastrointestinal: soft, non-tender, no distention, positive bowel sounds Musculoskeletal: no edema, pulses present Neurological: non-focal, normal sensation, moves all 4 limbs Psychiatric: normal affect, A&O x 3 Skin: no rash Dx/Plan (1) Dyspnea Code(s): R06.00 - DYSPNEA, UNSPECIFIED Status: Acute Comment: Lung nodules. ? unclear etiology.? Mets.improved (2) Leucocytosis Code(s): D72.829 - ELEVATED WHITE BLOOD CELL COUNT, UNSPECIFIED Status: Acute Comment: Likley due to decadron (3) Uterine mass Code(s): N85.9 - NONINFLAMMATORY DISORDER OF UTERUS, UNSPECIFIED Status: Chronic Comment: s/p Bx.results pending (4) Morbid obesity with BMI of 50.0-59.9, adult Code(s): E66.01 - MORBID (SEVERE) OBESITY DUE TO EXCESS CALORIES; Z68.43 - BODY MASS INDEX (BMI) 50-59.9, ADULT Status: Chronic (5) Lung nodules Status: Chronic (6) RAMO (iron deficiency anemia) Code(s): D50.9 - IRON DEFICIENCY ANEMIA, UNSPECIFIED Status: Chronic - Plan plan discussed w/ family, respiratory therapy, incentive spirometry, DVT proph w /SCDs Endometrial Bx negative .Plans for new tissue Bx per Oncology -: Defer to cardio tech. -: HD stable. -: monitor * . Review of Systems - Review of Systems Constitutional: weakness, malaise. negative: fever, chills, sweats, other ENT: negative: Ear Pain, Ear Discharge, Nose Pain, Nose Discharge, Nose Congestion, Mouth Pain, Mouth Swelling, Throat Pain, Throat Swelling, Other Respiratory: negative: Cough, Dry, Shortness of Breath, Hemoptysis, SOB with Excertion, Pleuritic Pain, Sputum, Wheezing Cardiovascular: negative: chest pain, palpitations, orthopnea, paroxysmal nocturnal dyspnea, edema, light headedness, other Gastrointestinal: Constipation. negative: Nausea, Vomiting, Abdominal Pain, Diarrhea, Melena, Hematochezia, Other Genitourinary: negative: Dysuria, Frequency, Incontinence, Hematuria, Retention , Other Musculoskeletal: negative: Neck Pain, Shoulder Pain, Arm Pain, Back Pain, Hand Pain, Leg Pain, Foot Pain, Other Skin: negative: Rash, Lesions, Robbie, Bruising, Other Neurological: negative: Weakness, Numbness, Incoordination, Change in Speech, Confusion, Seizures, Other - Medications/Allergies Allergies/Adverse Reactions: Allergies Allergy/AdvReac Type Severity Reaction Status Date / Time No Known Drug Allergies Allergy Verified 05/31/18 15:11 Medications: Current Medications Acetaminophen (Tylenol) 1,000 mg PO Q6H PRN PRN Reason: Mild Pain (1-3) Last Admin: 06/03/18 09:12 Dose: 1,000 mg Albuterol/Ipratropium (Duoneb) 3 ml NEB [id number] [facility] Last Admin: 06/03/18 09:29 Dose: 3 ml Benzonatate (Tessalon) 100 mg PO Q6H PRN PRN Reason: Cough Cyanocobalamin (Vitamin B-12) 1,000 mcg PO DAILY [facility] Last Admin: 06/03/18 08:25 Dose: 1,000 mcg Docusate Sodium (Colace) 100 mg PO BIDPRN PRN PRN Reason: Constipation Famotidine (Pepcid) 20 mg PO BID [facility] Last Admin: 06/03/18 08:24 Dose: 20 mg Ferrous Sulfate (Feosol) 325 mg PO BID [facility] Last Admin: 06/03/18 08:24 Dose: 325 mg Iron/Minerals/Multivitamins (Theragran M) 1 tab PO DAILY [facility] Last Admin: 06/03/18 08:25 Dose: 1 tab Mometasone Furoate/Formoterol Fumar (Dulera 200 Mcg/5 Mcg Inhaler) 2 puff INH BID-RT [facility] Last Admin: 06/03/18 05:58 Dose: 2 puff Morphine Sulfate (Morphine) 2 mg SLOW IVP Q6H PRN PRN Reason: Moderate to Severe Pain (6-10) Last Admin: 06/01/18 19:38 Dose: 2 mg Ondansetron HCl (Zofran Odt) 4 mg PO Q6H PRN PRN Reason: Nausea/Vomiting Ondansetron HCl (Zofran) 4 mg IVP Q6H PRN PRN Reason: Nausea/Vomiting Polyethylene Glycol (Miralax) 17 gm PO DAILYPRN PRN PRN Reason: Constipation Prednisone (Prednisone) 20 mg PO QAM-WM [facility] Stop: 06/08/18 08:01 Last Admin: 06/03/18 08:25 Dose: 20 mg Temazepam (Restoril) 15 mg PO HSPRN PRN PRN Reason: Insomnia Last Admin: 06/03/18 00:20 Dose: 15 mg Tramadol HCl (Ultram) 50 mg PO Q6H PRN PRN Reason: Moderate Pain (4-6) Tramadol HCl (Ultram) 100 mg PO Q6H PRN PRN Reason: Moderate to Severe Pain (6-10)
[2018-06-03] MEDS: Morphine 2 MG/ML SYRINGE SLOW IVP PRN (21:04)
[2018-06-04] MEDS: Mometasone/Formoterol 120 PUFF INHALER INH SCH (05:47)
[2018-06-04] MEDS: predniSONE 20 MG TAB PO SCH (09:04)
[2018-06-04] MEDS: Cyanocobalamin (Vitamin B-12) 1,000 MCG TAB PO SCH (09:04)
[2018-06-04] MEDS: Famotidine 20 MG TAB PO SCH (09:04)
[2018-06-04] MEDS: Multivitamin W/ Minerals 1 TAB PO SCH (09:04)
[2018-06-04] MEDS: Ferrous Sulfate 325 MG TAB PO SCH (09:04)
[2018-06-04 09:11] VITALS: BP 121/68; TEMP 98.7
--- NOTE | 2018-06-05 09:43 | EKG ---
Test Reason : Blood Pressure : / mmHG Vent. Rate : 102 BPM Atrial Rate : 102 BPM P-R Int : 130 ms QRS Dur : 068 ms QT Int : 334 ms P-R-T Axes : 061 067 036 degrees QTc Int : 435 ms Sinus tachycardia Otherwise normal ECG Confirmed by ERIC PATE, SAL Thomas ([id number]), editor managing newspaper JENSEN DICKEY ([id number]) on 06/05/2018 9:43:37 AM Referred By: Confirmed By:SAL REYES MD
--- NOTE | 2018-06-05 12:33 | DIS ---
DATE OF ADMISSION: 05/31/2018 DATE OF DISCHARGE: 06/04/2018 CONDITION AT THE TIME OF DISCHARGE: Stable and improved. DISCHARGE DISPOSITION: Home. PRIMARY CARE PHYSICIAN: None. DISCHARGE DIAGNOSIS: 1. Dyspnea. 2. Leukocytosis due to Decadron. 3. Large uterine mass, status post biopsy. 4. Morbid obesity. 5. Lung nodules. 6. Iron deficiency anemia. DISCHARGE MEDICATIONS: 1. Tramadol p.r.n. 2. Ferrous sulfate 325 mg p.o. b.i.d. 3. Multivitamin daily. IN-HOUSE CONSULTATION: 1. GEAR MACHINE OPERATOR, Dr. Crystal. 2. Hematology/Oncology, Ms. Cherelle Hodges, for Dr. Engel. PROCEDURES DONE IN THE HOSPITAL: 1. CT scan of the chest, abdomen, and pelvis, which shows large uterine mass extending outside the serosa along the left ovarian ligament and involving the left ovary, size 11 cm, axial image 88. Extensive pulmonary metastatic disease was seen. Small 1.4 cm mass of the liver was seen. Also, right paratracheal and right hilar metastatic adenopathy was also seen. 2. Endometrial biopsy by GEAR MACHINE OPERATOR, which showed unremarkable proliferative phase endometrium. HISTORY OF PRESENTING ILLNESS: Ms. Karlee Gli is a 33-year-old female without any significant past medical history except for recent diagnosis of a uterine mass, possibly fibroid in April 2016, as well as chronic asthma and obesity, who presented to the emergency room with complaints of shortness of breath. In the emergency room, she underwent a CT scan of the chest, abdomen, and pelvis, which was concerning for extensive metastatic disease with a large uterine mass. Pulmonary Medicine and GEAR MACHINE OPERATOR were consulted and she was admitted for further evaluation and care. Please see H and P dictated by Dr. Anderson on 05/31/2018. HOSPITAL COURSE: The patient underwent an endometrial biopsy by GEAR MACHINE OPERATOR and Oncology was also consulted. Her sample was apparently not adequate and the biopsy results came back negative. She remained rather stable throughout her hospitalization. It was entertained that she might need further biopsies, but mostly, she would need a juice scaleman/oncologist. Oncology set her up with Dr. Jennifer Mims in [place] and she will be seen by her in the next week or so. As of this morning, she has been cleared to discharge from GEAR MACHINE OPERATOR as well as Oncology perspective. She is not having any symptoms per se and is back to her baseline and is eager to go home and is hemodynamically stable. She was seen and examined prior to discharge. PHYSICAL EXAMINATION: VITAL SIGNS: Stable this morning. Saturating 97% on room air, blood pressure 121/68. GENERAL: No acute distress. CHEST: Clear to auscultation without any wheezing, rales, or rhonchi. HEART: Rate and rhythm is regular. No murmurs, rubs, or gallops. ABDOMEN: Obese, soft, nontender, nondistended. EXTREMITIES: Free of any cyanosis, clubbing, or edema. NEUROLOGICAL: Nonfocal. Job ID: [id number]
== END 2018-06-04 16:35 | disposition home or self-care (01) | DRG 744 ==
LOC: ERS 06:08 → ONC 13:52
PROVIDERS: ADMIT Family Medicine; ATTEND Family Medicine
PROC: 0UDB7ZX Extraction of Endometrium, Via Natural or Artificial Opening, Diagnostic (ICD-10-PCS; principal; 2018-05-31)
DX: D25.9 Leiomyoma of uterus, unspecified (principal); J45.901 Unspecified asthma with (acute) exacerbation; Z68.43 Body mass index [BMI] 50.0-59.9, adult; E66.01 Morbid (severe) obesity due to excess calories; D50.9 Iron deficiency anemia, unspecified; F17.210 Nicotine dependence, cigarettes, uncomplicated; T38.0X5A Adverse effect of glucocorticoids and synthetic analogues, initial encounter; D72.829 Elevated white blood cell count, unspecified; Z79.899 Other long term (current) drug therapy; R91.8 Other nonspecific abnormal finding of lung field
CPT/HCPCS: 36415; 71045; 71260; 74177; 80053; 81001; 82550; 82728; 83540; 83550; 84484; 85007; 85025; 85027; 85046; 86304; 88305; 93005; 94640; 96374; 99406; J1100; J1885; J2270; J2916; J3475; J3490; J7050; J7512; J7620; J8540; Q9966

== ENCOUNTER 2018-06-17 04:10 | Emergency (ER) | payer OTHER, SELFPAY ==
[2018-06-17 04:41] LABS: #Eosinphils 0.5 thou/uL (0.0-0.7); #Lymphocytes 2.5 thou/uL (1.20-3.40); #Monocytes 0.9 thou/uL (0.11-0.59); #Neutrophils 14.2 thou/uL (1.40-6.50); %Basophils 0.2 % (0.0-1.0); %Eosinophils 2.6 % (0.0-10.0); %Lymphocytes 13.5 % (21.0-51.0); %Monocytes 5.2 % (0.0-10.0); %Neutrophils 78.5 % (42.0-75.0); Mean Corpuscular HGB CONC 29.9 g/dL (32.0-36.0); Mean Corpuscular Hemoglobin 23.6 pg (27.0-31.0); Mean Corpuscular Volume 78.9 fL (78.0-98.0); Platelet Count 686 thou/uL (130-400); RBC Distribution Width 25.9 % (11.5-14.5); Red Blood Cell (RBC) Count 3.81 mill/uL (4.20-5.40); White Blood Cell (WBC) Count 18.1 thou/uL (4.8-10.8)
[2018-06-17 05:07] LABS: ALT (SGPT) 46 U/L (8-55); AST (SGOT) 22 U/L (5-34); Albumin 3.1 g/dL (3.5-5.0); Alkaline Phosphatase 93 U/L (40-150); Anion Gap 12 mmol/L (10-20); BUN (Urea Nitrogen) 8 mg/dL (7.0-18.7); Bilirubin, Total 0.3 mg/dL (0.2-1.2); Calc. Creatinine Clearance 0 mL/min (70-130); Calcium 8.9 mg/dL (7.8-10.44); Carbon Dioxide 27 mmol/L (22-29); Chloride 103 mmol/L (98-107); Estimated GFR-MDRD Greater than 90; Globulin 3.3 g/dL (2.4-3.5); Glucose 116 mg/dL (70-105); Potassium 4.2 mmol/L (3.5-5.1); Protein, Total 6.4 g/dL (6.0-8.3); Sodium 138 mmol/L (136-145)
--- NOTE | 2018-06-17 06:58 | CT ---
CT ABDOMEN AND PELVIS WITH CONTRAST: INDICATIONS: Bleeding from surgical site. History of hysterectomy. Previous diagnosis of metastatic disease. COMPARISON: 05/31/2018 FINDINGS: Numerous metastatic pulmonary parenchymal lesions are redemonstrated, incompletely visualized. Three is an incompletely assessed, rounded mass of the right hilum, as well. There is also bilateral post eromedial opacification of the lungs, which may be on the basis of aspiration, given the configuratio n of findings. Correlate clinically. The prior pelvic mass demonstrates interval surgical removal. There is post surgical scar seen at the ventral low abdominal midline. Within the postoperative pel deep cavity, there is abnormal fluid and air with peripheral hyperdensity. This finding is interposed between the rectum and the urinary bladder, as well as insinuating between additional sites of trave rsing bowel. There is intraperitoneal air, which is localized to the pelvis and may relate to recent surgery, in light of the clinical history. Prominent ventral subcutaneous edema and skin thickening is present, with air density within the abdominal wall, as well as a focal area of fluid density wit hin the incision site that is irregular in configuration, approximately 3 cm axial by nearly 6 cm hand scraper niocaudal. This could relate to a postoperative hematoma, seroma, or possibly a developing infection fluid collection. Correlate clinically to exclude evidence of overlying cellulitis. The solid abdominal organs are grossly stable, although the previously mentioned vague hypoattenuatin g focus with mixed density involving the posterior segment right hepatic lobe is less conspicuous, fa intly visualized currently, and incompletely evaluated. Punctate densities of the kidneys may relate to excrete contrast media. There is moderate distention of the gallbladder. No interval acute osse ous abnormality. IMPRESSION: 1. Interval surgical resection of the previously described pelvic mass. There has been development of complex fluid and air collection of the pelvis, interposed between bowel and urinary bladder, not amenable to percutaneous sampling due to its location. Given the imaging appearance, this is concern ing for a developing infectious fluid process (i.e. developing abscess). There is adjacent intraperi toneal air, relatively small in volume, which may relate to the recent surgery. Given clinical histo ry, recommend clinical correlation in this regard. 2. Redemonstration of pulmonary metastatic disease, extensive, with interval development of superimp osed bilateral pneumonitis. 3. Faint visualization of the previously mentioned hepatic lesion, indeterminate on the basis of thi s examination. 4. Edema/inflammatory process of the ventral abdominal wall with the possibility of superimposed dev eloping infectious fluid collection within the subcutaneous surgical tract. For the above findings, recommend a gynecologic consultation for further care. This case was discuss ed via telephone with Dr. Guerra (0600 hrs., 06/17/18). POS: DANIEL
[2018-06-17] MEDS ORDERED: Morphine 4 MG/ML VIAL ONE (07:30)
[2018-06-17] MEDS ORDERED: Sodium Chloride 0.9% 100 ML ONE (07:31)
[2018-06-17] MEDS ORDERED: Ondansetron PF 4 MG/2 ML Vial ONE (07:31)
[2018-06-17] MEDS ORDERED: Piperacillin/Tazobactam 4.5 GM VIAL ONE (07:31)
[2018-06-17] MEDS ORDERED: ISOVUE-370 76%-LOCM 1 ML ONE (11:12)
== END 2018-06-17 09:50 | disposition short-term general hospital (02) ==
LOC: ERS 04:10
DX: L02.31 Cutaneous abscess of buttock (principal); J45.909 Unspecified asthma, uncomplicated; Z79.899 Other long term (current) drug therapy
CPT/HCPCS: 36415; 74177; 80053; 85025; 87040; 96365; 96375; J2270; J2405; J2543; J3490; Q9966

== ENCOUNTER 2018-09-08 10:04 | Day surgery (SDC) | payer SELFPAY ==
[~2018-09-08 10:04] MED LIST: Dexamethasone 10 MG, Ondansetron HCl/PF 10 MG in Sodium Chloride 0.9% 50 ML IVPB SCH; GEMCITABINE HCL IVPB SCH; SODIUM CHLORIDE 0.9% IVPB SCH
[2018-09-08] MEDS ORDERED: Sodium Chloride 0.9% 20 ML ONE (10:36)
[2018-09-08 12:35] VITALS: BP 144/64; TEMP 98.5
== END 2018-09-08 15:52 | disposition home or self-care (01) ==
LOC: ONC/OP 10:04
PROVIDERS: ATTEND Internal Medicine Hematology & Oncology
DX: Z51.11 Encounter for antineoplastic chemotherapy (principal); C54.1 Malignant neoplasm of endometrium
CPT/HCPCS: 96375; 96413; J1100; J2405; J7050; J9201

== ENCOUNTER 2018-09-10 09:08 | Day surgery (SDC) | payer OTHER, SELFPAY ==
[2018-09-10] MEDS ORDERED: Fentanyl 100 MCG/2 ML VIAL ONE (09:38)
[2018-09-10] MEDS ORDERED: Midazolam HCl 2 mg/2 ml Vial ONE (09:39)
[2018-09-10] MEDS ORDERED: Propofol 500 MG/50 ML VIAL ONE (09:42)
--- NOTE | 2018-09-10 12:21 | RAD ---
CHEST 1 VIEW: HISTORY: MediPort placement. COMPARISON: Chest radiograph 05/31/2018. FINDINGS: Port catheter placement sits at the superior SVC. No pneumothorax. Pulmonary masses have improved. IMPRESSION: Uncomplicated placement of port catheter. Marked improvement of the pulmonary masses. POS: CET
[2018-09-10] MEDS ORDERED: Lidocaine 1% PF 5 ML VIAL ONE (16:00)
[2018-09-10] MEDS ORDERED: PHENYLEPHRINE-NS 100 MCG/ML 10 ML SYRINGE ONE (16:00)
[2018-09-10] MEDS ORDERED: Ketorolac Tromethamine 30 MG/ML VIAL ONE (16:00)
[2018-09-10] MEDS ORDERED: ePHEDrine 50 MG/ML VIAL ONE (16:00)
[2018-09-10] MEDS ORDERED: PROPOFOL 200 MG/20 ML VIAL ONE (16:00)
[2018-09-10] MEDS ORDERED: Ondansetron PF 4 MG/2 ML Vial ONE (16:00)
--- NOTE | 2018-09-11 09:10 | PDOC.OP ---
Operative Note - Operative Note Operative Note: PROCEDURE: Left internal jugular MediPort placement with ultrasound and fluoroscopic guidance DATE OF PROCEDURE: 08/11/2018 SURGEON: Lucía Aguero M.D. VICE CHAIR: Titus Grace MS 3 PREOPERATIVE DIAGNOSIS: Metastatic uterine cancer POSTOPERATIVE DIAGNOSIS: Metastatic uterine cancer HISTORY: Patient has been diagnosed with metastatic uterine cancer. Chemotherapy has been recommended and a Mediport has been requested for this. OPERATIVE PROCEDURE IN DETAIL: After informed consent was obtained and appropriate preoperative antibiotics administered, the patient was taken to the operating room and placed in supine position and monitored anesthesia care was administered. The patient was then placed in Trendelenburg position and the left subclavian vein attempted to be accessed by the standard approach, but it was difficult to get the needle under the clavicle in the horizontal position due to the patient's body habitus and the vein could not be accessed. Decision was made to place the Mediport in the left internal jugular position. A sterile ultrasound probe was used identify the patent compressible left internal jugular vein. This was accessed under direct ultrasound guidance easily on the first attempt with excellent flow of dark venous non-pulsatile blood. A wire threaded easily and was confirmed to be in the superior vena cava by fluoroscopy. Additional local anesthesia was infused to the skin and subcutaneous tissues of the left neck and chest. A skin incision was made on the left chest and a subcutaneous pocket developed inferiorly. A Mediport was obtained and confirmed to fit in the subcutaneous pocket. This was secured inferiorly to the pectoralis fascia with a Prolene suture, which was clamped, but not tied. Mediport tubing was then tunneled from this site to the left internal jugular access site. The dilator and sheath were then placed over the wire and the dilator and wire removed leaving the sheath in place. The clamped MediPort tubing was tunneled through the sheath, which was then split and removed leaving the MediPort tubing in place. The tubing was adjusted until the tip was confirmed by fluoroscopy to be in the superior vena cava just above the atrium. The tubing was clamped at the skin level and cut and the tubing secured to the port, which was then placed in the subcutaneous pocket. The previously placed suture was secured and two additional sutures were placed to fix the port in place within the pocket. The port was aspirated with the Fernandes needle and had excellent flow of dark venous non-pulsatile blood and easily flushed without resistance. The subcutaneous tissues were closed with a running Monocryl suture, following which the skin was closed with a running subcuticular Monocryl suture. Dermabond dressings were placed and the hub was again accessed through the skin and confirmed to easily aspirate and easily flush. The course of the catheter was confirmed by fluoroscopy to be smooth with the tip appropriately located in the superior vena cava. The patient was taken back to the day stay unit in good condition. Estimated blood loss was minimal. There were no complications. There were no specimens.
== END 2018-09-10 12:56 | disposition home or self-care (01) ==
LOC: SDC 09:08
PROVIDERS: ATTEND Surgery
PROC: 05HN33Z Insertion of Infusion Device into Left Internal Jugular Vein, Percutaneous Approach (ICD-10-PCS; principal; 2018-09-10)
PROC: B5141ZA Fluoroscopy of Left Jugular Veins using Low Osmolar Contrast, Guidance (ICD-10-PCS; principal; 2018-09-10)
DX: C78.7 Secondary malignant neoplasm of liver and intrahepatic bile duct (principal); C78.00 Secondary malignant neoplasm of unspecified lung; C55 Malignant neoplasm of uterus, part unspecified; J45.909 Unspecified asthma, uncomplicated; F17.200 Nicotine dependence, unspecified, uncomplicated
CPT/HCPCS: 71045; C1788; J0690; J2250; J2704; J3010

== ENCOUNTER 2018-09-14 09:32 | Outpatient (CLI) | payer SELFPAY ==
--- NOTE | 2018-09-14 11:15 | CT ---
CT OF THE CHEST, ABDOMEN AND PELVIS WITH IV CONTRAST INDICATION: History of metastatic uterine sarcoma COMPARISON: CT the abdomen and pelvis dated June 17, [address] of the chest, abdomen and pelvis dated May 31, 2018 FINDINGS: CHEST: Lungs:There is been reduction in size and number of the pulmonary metastatic lesions. The index later al within the right middle lobe measuring 3.3 x 2.6 cm on the prior exam now measures 1.4 x 1 cm. Largest lesion within the left lower lobe on the prior examination measured 3.0 x 2.3 cm now measures 2.6 x 1.7 cm. Heart and great vessels:No acute traumatic injury seen. Pleural space: No pneumothorax or effusion. Additional findings: There is reduction in size of the mediastinal and right hilar lymphadenopathy. The previously seen 3.3 cm right infrahilar node is now 1.3 cm in size. The previously seen 1.9 cm right suprahilar lymph node now measures 1 cm. Previously seen large right paratracheal lymph node pr eviously measured 4.9 cm now measures 4.7 cm. There is a new left chest wall port in place. ABDOMEN: Liver:The indeterminate hypodensity with central areas of nodular enhancement involving segment 6 of the right hepatic lobe is stable in size measuring 1.4 cm. The additional 8 mm hypodensity within segment 5 of the right hepatic lobe is stable. Spleen:Normal appearing. Pancreas:Normal appearing. Adrenal Glands:Normal appearing. Kidneys:Normal appearing. Aorta:Normal appearing. Additional findings: No pathologically enlarged lymph nodes are evident. Pelvis: Bowel:Normal appearing. Bladder:Normal appearing. Reproductive structures:Surgically absent Rectum and perirectal soft tissues:Normal appearing. Additional findings: No lymph node Osseous structures: No acute osseous abnormality. No suspicious osteolytic or osteoblastic lesion is identified. IMPRESSION: 1. Findings consistent with response to therapy. There is significant decrease in number and size of the pulmonary metastatic lesions. There is improvement in the right hilar and mediastinal lymphadenopathy. There is improvement in the inguinal lymphadenopathy. 2. Hypodensities within the right hepatic lobe are stable in size and appearance. These remain indete rminate but favor a benign process such as complex cyst or hemangioma.
[2018-09-14] MEDS ORDERED: ISOVUE-370 76%-LOCM 1 ML ONE (13:33)
== END 2018-09-14 09:33 | disposition home or self-care (01) ==
LOC: BICCT 09:32
PROVIDERS: ATTEND Internal Medicine Hematology & Oncology
DX: C54.1 Malignant neoplasm of endometrium (principal); C78.00 Secondary malignant neoplasm of unspecified lung; R59.0 Localized enlarged lymph nodes; K76.89 Other specified diseases of liver
CPT/HCPCS: 71260; 74177; Q9966

== ENCOUNTER 2018-09-15 09:21 | Day surgery (SDC) | payer SELFPAY ==
[~2018-09-15 09:21] MED LIST changes: +DOCETAXEL IVPB SCH; -Dexamethasone 10 MG, Ondansetron HCl/PF 10 MG in Sodium Chloride 0.9% 50 ML IVPB SCH; +Palonosetron HCl 0.25 MG in Sodium Chloride 0.9% 50 ML IVPB SCH
[2018-09-15] MEDS ORDERED: Sodium Chloride 0.9% 20 ML ONE (09:37)
[2018-09-15 10:06] VITALS: BP 148/66; TEMP 98.6
[2018-09-15] MEDS ORDERED: DOCETAXEL IVPB SCH (10:15)
[2018-09-15] MEDS ORDERED: SODIUM CHLORIDE 0.9% IVPB SCH (10:15)
== END 2018-09-15 15:55 | disposition home or self-care (01) ==
LOC: ONC/OP 09:21
PROVIDERS: ATTEND Internal Medicine Hematology & Oncology
DX: Z51.11 Encounter for antineoplastic chemotherapy (principal); C54.1 Malignant neoplasm of endometrium
CPT/HCPCS: 96375; 96413; 96417; J1100; J1642; J2469; J7050; J9171; J9201

== ENCOUNTER 2018-09-16 12:16 | Day surgery (SDC) | payer SELFPAY ==
[2018-09-09 13:02] VITALS: BMI 46.5
[~2018-09-16 12:16] MED LIST changes: -DOCETAXEL IVPB SCH; -GEMCITABINE HCL IVPB SCH; +PEGFILGRASTIM-JMDB 6 MG/0.6 ML SYRINGE SQ SCH; -Palonosetron HCl 0.25 MG in Sodium Chloride 0.9% 50 ML IVPB SCH; -SODIUM CHLORIDE 0.9% IVPB SCH
[2018-09-16 12:36] VITALS: BP 126/77; TEMP 98.5
== END 2018-09-16 12:38 | disposition home or self-care (01) ==
LOC: ONC/OP 12:16
PROVIDERS: ATTEND Internal Medicine Hematology & Oncology
DX: Z51.11 Encounter for antineoplastic chemotherapy (principal); C54.1 Malignant neoplasm of endometrium
CPT/HCPCS: 96372; Q5108

== ENCOUNTER 2018-09-19 20:41 | Emergency (ER) | payer SELFPAY ==
[~2018-09-19 20:41] MED LIST changes: +Iopamidol 370 76% 100 ML VIAL ONE; -PEGFILGRASTIM-JMDB 6 MG/0.6 ML SYRINGE SQ SCH
--- NOTE | 2018-09-19 21:39 | RAD ---
Chest one view HISTORY: Chest pain. COMPARISON: 09/10/2018. FINDINGS: Cardiac silhouette and pulmonary vasculature are unremarkable. Mediastinum is midline. Bila teral parenchymal masses are again demonstrated. No lobar consolidation or evidence of pneumothorax. IMPRESSION: Stable radiographic appearance of the chest.
[2018-09-19 21:51] LABS: Hemoglobin 12.7 g/dL (12.0-16.0); Mean Corpuscular HGB CONC 32.9 g/dL (32.0-36.0); Mean Corpuscular Hemoglobin 26.2 pg (27.0-31.0); Mean Corpuscular Volume 79.7 fL (78.0-98.0); Mean Platelet Volume 9.6 fL (7.4-10.4); Platelet Count 177 thou/uL (130-400); RBC Distribution Width 18.4 % (11.5-14.5); Red Blood Cell (RBC) Count 4.85 mill/uL (4.20-5.40); White Blood Cell (WBC) Count 7.4 thou/uL (4.8-10.8)
[2018-09-19 22:08] LABS: ALT (SGPT) 26 U/L (8-55); AST (SGOT) 12 U/L (5-34); Albumin 3.9 g/dL (3.5-5.0); Alkaline Phosphatase 118 U/L (40-150); Anion Gap 12 mmol/L (10-20); BUN (Urea Nitrogen) 14 mg/dL (7.0-18.7); Bilirubin, Total 0.4 mg/dL (0.2-1.2); CK (CPK) 42 U/L (29-168); Calc. Creatinine Clearance 0 mL/min (70-130); Calcium 9.7 mg/dL (7.8-10.44); Carbon Dioxide 27 mmol/L (22-29); Chloride 101 mmol/L (98-107); Estimated GFR-MDRD 85; Glucose 167 mg/dL (70-105); Lymphocytes 68 % (21-51); MDiff Complete? YES; Monocytes 1 % (0-10); Neutrophil 31 % (42-75); Platelet Morphology Comment Appears Adequate; Protein, Total 6.9 g/dL (6.0-8.3); RBC Morphology Normal; Sodium 136 mmol/L (136-145)
[2018-09-19] MEDS ORDERED: Morphine 4 MG/ML VIAL ONE (22:36)
--- NOTE | 2018-09-19 23:36 | CT ---
CT arteriogram chest with IV contrast and 3-D imaging HISTORY: Chest pain. Tachycardia. COMPARISON: 09/14/2018. FINDINGS: There is good contrast opacification of the pulmonary arteries and thoracic aorta with bovi ne origin of the great vessels at the aortic arch. Mediastinal adenopathy and multiple bilateral parenchymal lung masses are again demonstrated. Not significantly changed from recent staging CT exam . No pleural fluid or pneumothorax. IMPRESSION: No CT evidence of pulmonary embolus. Metastatic disease of the chest appears stable.
== END 2018-09-20 00:38 | disposition home or self-care (01) ==
LOC: ERS 20:41
DX: R07.9 Chest pain, unspecified (principal); R51 Headache; J45.909 Unspecified asthma, uncomplicated; Z79.899 Other long term (current) drug therapy
CPT/HCPCS: 36415; 71045; 71275; 80053; 82550; 83880; 84484; 85025; 93005; 96361; 96374; J2270; Q9967

== ENCOUNTER → 2018-09-29 | Day surgery (SDC) | payer SELFPAY ==
[~2018-09-29] MED LIST changes: +Dexamethasone Sod Phosphate 10 MG, Ondansetron 2MG/ML MDV 10 MG in Sodium Chloride 0.9%... IVPB SCH; +GEMCITABINE HCL IVPB SCH; -Iopamidol 370 76% 100 ML VIAL ONE; +SODIUM CHLORIDE 0.9% IVPB SCH; +Sodium Chloride 0.9% 20 ML ONE
== END ==
LOC: ONC/OP 09:54
PROVIDERS: ATTEND Internal Medicine Hematology & Oncology
DX: Z51.11 Encounter for antineoplastic chemotherapy (principal); C54.1 Malignant neoplasm of endometrium
CPT/HCPCS: 96375; 96413; J1100; J1642; J2405; J7050; J9201

== ENCOUNTER 2018-10-06 08:26 | Day surgery (SDC) | payer SELFPAY ==
[~2018-10-06 08:26] MED LIST changes: +DOCETAXEL IVPB SCH; -Dexamethasone Sod Phosphate 10 MG, Ondansetron 2MG/ML MDV 10 MG in Sodium Chloride 0.9%... IVPB SCH; +Palonosetron HCl 0.25 MG in Sodium Chloride 0.9% 50 ML IVPB SCH; -Sodium Chloride 0.9% 20 ML ONE
[2018-10-06] MEDS ORDERED: Sodium Chloride 0.9% 20 ML ONE (08:33)
[2018-10-06 08:36] VITALS: BP 131/81; TEMP 99.2
== END 2018-10-06 11:41 | disposition home or self-care (01) ==
LOC: ONC/OP 08:26
PROVIDERS: ATTEND Internal Medicine Hematology & Oncology
DX: Z51.11 Encounter for antineoplastic chemotherapy (principal); C54.1 Malignant neoplasm of endometrium
CPT/HCPCS: 96375; 96413; 96417; J1100; J1642; J2469; J7050; J9171; J9201

== ENCOUNTER 2018-10-20 10:28 | Day surgery (SDC) | payer SELFPAY ==
[~2018-10-20 10:28] MED LIST changes: -DOCETAXEL IVPB SCH; +Dexamethasone Sod Phosphate 10 MG, Ondansetron 2MG/ML MDV 10 MG in Sodium Chloride 0.9%... IVPB SCH; -Palonosetron HCl 0.25 MG in Sodium Chloride 0.9% 50 ML IVPB SCH
[2018-10-20] MEDS ORDERED: Sodium Chloride 0.9% 20 ML ONE (10:36)
== END 2018-10-20 13:32 | disposition home or self-care (01) ==
LOC: ONC/OP 10:28
PROVIDERS: ATTEND Internal Medicine Hematology & Oncology
DX: Z51.11 Encounter for antineoplastic chemotherapy (principal); C54.1 Malignant neoplasm of endometrium
CPT/HCPCS: 96375; 96413; J1100; J2405; J7050; J9201

== ENCOUNTER 2018-10-27 08:08 | Day surgery (SDC) | payer SELFPAY ==
[~2018-10-27 08:08] MED LIST changes: +DOCETAXEL IVPB SCH; -Dexamethasone Sod Phosphate 10 MG, Ondansetron 2MG/ML MDV 10 MG in Sodium Chloride 0.9%... IVPB SCH; +Palonosetron HCl 0.25 MG in Sodium Chloride 0.9% 50 ML IVPB SCH; +Pegfilgrastim Onpro 6 MG/0.6 ML SQ SCH
[2018-10-27] MEDS ORDERED: Sodium Chloride 0.9% 20 ML ONE (08:20)
[2018-10-27 12:08] VITALS: BP 147/71; TEMP 98.1
== END 2018-10-27 13:41 | disposition home or self-care (01) ==
LOC: ONC/OP 08:08
PROVIDERS: ATTEND Internal Medicine Hematology & Oncology
DX: Z51.11 Encounter for antineoplastic chemotherapy (principal); C54.1 Malignant neoplasm of endometrium
CPT/HCPCS: 96375; 96377; 96413; 96417; J1100; J1642; J2469; J2505; J7050; J9171; J9201

== ENCOUNTER 2018-11-10 12:04 | Outpatient (CLI) | payer OTHER ==
--- NOTE | 2018-11-10 15:01 | ULT ---
BILATERAL LOWER EXTREMITY VENOUS DOPPLER ULTRASOUND: 11/10/18 HISTORY: Bilateral lower extremity edema. TECHNIQUE: Alejo scale, color flow and spectral Doppler imaging of the deep venous systems of the lower extremit ies is performed bilaterally. FINDINGS: There is good flow, compression, and augmentation noted in the common femoral, femoral, deep femoral, popliteal, posterior tibial and greater saphenous veins on either side. IMPRESSION: No evidence of DVT in either lower extremity. POS: OFF
== END 2018-11-10 12:05 | disposition home or self-care (01) ==
LOC: ULT 12:04
PROVIDERS: ATTEND Internal Medicine Hematology & Oncology
DX: C54.1 Malignant neoplasm of endometrium (principal); R60.0 Localized edema; M79.605 Pain in left leg; M79.604 Pain in right leg
CPT/HCPCS: 93970

== ENCOUNTER → 2018-11-10 | Day surgery (SDC) | payer SELFPAY ==
[~2018-11-10] MED LIST changes: -DOCETAXEL IVPB SCH; +Dexamethasone 10 MG, Ondansetron 2MG/ML MDV 10 MG in Sodium Chloride 0.9% 50 ML IVPB SCH; +Dexamethasone Sod Phosphate 10 MG, Ondansetron 2MG/ML MDV 10 MG in Sodium Chloride 0.9%... IVPB SCH; +GEMZAR IVPB SCH; -Palonosetron HCl 0.25 MG in Sodium Chloride 0.9% 50 ML IVPB SCH; -Pegfilgrastim Onpro 6 MG/0.6 ML SQ SCH; +Sodium Chloride 0.9% 20 ML ONE
[2018-11-10 14:23] VITALS: BP 133/76
== END ==
LOC: ONC/OP 12:17
PROVIDERS: ATTEND Internal Medicine Hematology & Oncology
DX: Z51.11 Encounter for antineoplastic chemotherapy (principal); C54.1 Malignant neoplasm of endometrium
CPT/HCPCS: 96375; 96413; J1100; J1642; J2405; J7050; J9201

== ENCOUNTER 2018-11-17 09:23 | Day surgery (SDC) | payer MEDICAID, SELFPAY ==
[~2018-11-17 09:23] MED LIST changes: +DOCETAXEL IVPB SCH; -Dexamethasone 10 MG, Ondansetron 2MG/ML MDV 10 MG in Sodium Chloride 0.9% 50 ML IVPB SCH; -Dexamethasone Sod Phosphate 10 MG, Ondansetron 2MG/ML MDV 10 MG in Sodium Chloride 0.9%... IVPB SCH; -GEMZAR IVPB SCH; +Palonosetron HCl 0.25 MG in Sodium Chloride 0.9% 50 ML IVPB SCH
[2018-11-17 09:32] VITALS: BP 141/77; TEMP 98.2
== END 2018-11-17 14:14 | disposition home or self-care (01) ==
LOC: ONC/OP 09:23
PROVIDERS: ATTEND Internal Medicine Hematology & Oncology
DX: Z51.11 Encounter for antineoplastic chemotherapy (principal); C54.1 Malignant neoplasm of endometrium
CPT/HCPCS: 96375; 96413; 96417; J1100; J1642; J2469; J7050; J9171; J9201

== ENCOUNTER 2018-12-01 11:14 | Day surgery (SDC) | payer MEDICAID ==
[~2018-12-01 11:14] MED LIST changes: -DOCETAXEL IVPB SCH; +Dexamethasone Sod Phosphate 10 MG, Ondansetron 2MG/ML MDV 10 MG in Sodium Chloride 0.9%... IVPB SCH; -Palonosetron HCl 0.25 MG in Sodium Chloride 0.9% 50 ML IVPB SCH; -Sodium Chloride 0.9% 20 ML ONE
[2018-12-01] MEDS ORDERED: Sodium Chloride 0.9% 20 ML ONE (11:17)
[2018-12-01 11:54] VITALS: BP 142/66; TEMP 98
== END 2018-12-01 13:10 | disposition home or self-care (01) ==
LOC: ONC/OP 11:14
PROVIDERS: ATTEND Internal Medicine Hematology & Oncology
DX: Z51.11 Encounter for antineoplastic chemotherapy (principal); C54.1 Malignant neoplasm of endometrium
CPT/HCPCS: 36415; 80053; 82248; 82728; 83540; 83550; 83615; 84100; 84550; 96375; 96413; J1100; J1642; J2405; J7050; J9201

== ENCOUNTER 2018-12-08 09:58 | Day surgery (SDC) | payer MEDICAID ==
[~2018-12-08 09:58] MED LIST changes: +DOCETAXEL IVPB SCH; -Dexamethasone Sod Phosphate 10 MG, Ondansetron 2MG/ML MDV 10 MG in Sodium Chloride 0.9%... IVPB SCH; +Palonosetron HCl 0.25 MG in Sodium Chloride 0.9% 50 ML IVPB SCH
[2018-12-08 12:04] VITALS: BP 125/70; TEMP 98.3
[2018-12-08] MEDS ORDERED: Sodium Chloride 0.9% 20 ML ONE (12:28)
== END 2018-12-08 14:47 | disposition home or self-care (01) ==
LOC: ONC/OP 09:58
PROVIDERS: ATTEND Internal Medicine Hematology & Oncology
DX: Z51.11 Encounter for antineoplastic chemotherapy (principal); C54.1 Malignant neoplasm of endometrium
CPT/HCPCS: 96375; 96413; 96417; J1100; J1642; J2469; J7050; J9171; J9201

== ENCOUNTER 2018-12-09 10:15 | Day surgery (SDC) | payer MEDICAID ==
[~2018-12-09 10:15] MED LIST changes: -DOCETAXEL IVPB SCH; -GEMCITABINE HCL IVPB SCH; +PEGFILGRASTIM-JMDB 6 MG/0.6 ML SYRINGE SQ SCH; -Palonosetron HCl 0.25 MG in Sodium Chloride 0.9% 50 ML IVPB SCH; -SODIUM CHLORIDE 0.9% IVPB SCH
[2018-12-09 10:22] VITALS: BP 132/70; TEMP 98
== END 2018-12-09 10:22 | disposition home or self-care (01) ==
LOC: ONC/OP 10:15
PROVIDERS: ATTEND Internal Medicine Hematology & Oncology
DX: Z51.11 Encounter for antineoplastic chemotherapy (principal); C54.1 Malignant neoplasm of endometrium
CPT/HCPCS: 96372; Q5108

== ENCOUNTER 2018-12-14 05:06 | Inpatient (IN) | payer MEDICAID ==
[2018-12-14] MEDS ORDERED: Morphine 4 MG/ML VIAL ONE ×2 (05:51→09:29)
[2018-12-14] MEDS ORDERED: Ondansetron PF 4 MG/2 ML Vial ONE (05:51)
[2018-12-14 06:46] LABS: Hemoglobin 10.2 g/dL (12.0-16.0); Mean Corpuscular HGB CONC 33.1 g/dL (32.0-36.0); Mean Corpuscular Hemoglobin 27.6 pg (27.0-31.0); Mean Corpuscular Volume 83.2 fL (78.0-98.0); Mean Platelet Volume 8.8 fL (7.4-10.4); Platelet Count 173 thou/uL (130-400); RBC Distribution Width 21.6 % (11.5-14.5); Red Blood Cell (RBC) Count 3.69 mill/uL (4.20-5.40); White Blood Cell (WBC) Count 10.4 thou/uL (4.8-10.8)
[2018-12-14 06:47] LABS: Band 10 % (5-11); Eosinophils 1 % (0-10); Lymphocytes 37 % (21-51); MDiff Complete? YES; Monocytes 2 % (0-10); Neutrophil 50 % (42-75); Platelet Morphology Comment Appears Adequate
[2018-12-14 06:55] LABS: ALT (SGPT) 38 U/L (8-55); AST (SGOT) 22 U/L (5-34); Albumin 3.7 g/dL (3.5-5.0); Alkaline Phosphatase 136 U/L (40-110); Anion Gap 16 mmol/L (10-20); BUN (Urea Nitrogen) 11 mg/dL (7.0-18.7); Bilirubin, Total 0.5 mg/dL (0.2-1.2); Calc. Creatinine Clearance 0 mL/min (70-130); Calcium 9.1 mg/dL (7.8-10.44); Carbon Dioxide 23 mmol/L (22-29); Chloride 102 mmol/L (98-107); Estimated GFR-MDRD 81; Globulin 2.5 g/dL (2.4-3.5); Glucose 167 mg/dL (70-105); Protein, Total 6.2 g/dL (6.0-8.3); Sodium 137 mmol/L (136-145)
--- NOTE | 2018-12-14 08:25 | CT ---
ABDOMEN CT WITH CONTRAST PELVIC CT WITH CONTRAST: COMPARISON: 06/17/2018, 09/14/2018. HISTORY: Uterine cancer, spread to kidneys and lung. The patient is undergoing chemotherapy. Worsening skin irritation and thigh bleeding. FINDINGS: Multiple lung metastases are redemonstrated. Right lower lobe nodule currently measures 1.2 x 1.8 cm . The left lower lobe nodule currently measures 1.5 x 2.6 cm. Previously noted consolidation in bot h lower lobes has improved. Previously noted right infrahilar lymphadenopathy has decreased. Ill-defined hypodensity in the liver measures 1.1 x 0.7 cm. Additional hypodensity in the posterior segment of the right hepatic lobe measures 1.1 x 1.4 cm. Reference made with the most recent CT note s that these lesions have not significantly increased in size. Previously, the lesion in the anterio r segment of the right hepatic lobe measured 1 cm in maximum dimension and the lesion in the posterio r segment of the right hepatic lobe measured 1.4 x 1.2 cm. Portal vein is patent. Unremarkable gallbladder. Spleen, pancreas, and adrenal glands have appropriate attenuation. No gastrohepatic, retrocrural or periportal lymphadenopathy. Symmetric enhancement of the kidneys. Bilaterally, no obstructive uropathy. No mesenteric mass, lymphadenopathy, free air, or free fluid. Limited evaluation of the alimentary canal by the lack of oral contrast. No evidence of bowel obstru ction. CT PELVIS: Findings compatible with hysterectomy. No pelvic mass, lymphadenopathy, free air, or free fluid. Ur inary bladder is unremarkable. No lytic or blastic lesions in the osseous structures. IMPRESSION: Redemonstration of hepatic and lung parenchymal metaphyses. POS: ALEJANDRO
[2018-12-14] MEDS ORDERED: Piperacillin/Tazobactam 4.5 GM VIAL ONE (09:29)
[2018-12-14] MEDS ORDERED: ISOVUE-370 76%-LOCM 1 ML ONE (10:31)
[2018-12-14] MEDS ORDERED: Clindamycin/D5W 600 mg/50 ml Premix Bag ONE (10:31)
[2018-12-14 11:05] LABS: Lactic Acid 2.2 mmol/L (0.5-2.2)
[2018-12-14] MEDS ORDERED: Ondansetron HCl/PF 8 MG in Sodium Chloride 0.9% 50 ML IVPB SCH (13:00)
[2018-12-14 15:15] VITALS: BMI 47.5
[2018-12-14] MEDS ORDERED: Ondansetron PF 4 MG/2 ML Vial IVP PRN (16:11)
[2018-12-14] MEDS ORDERED: Prochlorperazine Maleate 5 MG TAB PO PRN (16:11)
[2018-12-14] MEDS ORDERED: hydrALAZINE 20 MG/ML VIAL SLOW IVP PRN (16:11)
[2018-12-14] MEDS ORDERED: PROVENTIL INHALER 6.7 G (200 INHALATIONS) INH PRN (16:11)
[2018-12-14] MEDS ORDERED: Ondansetron ODT 4 MG TAB PO PRN (16:11)
[2018-12-14] MEDS: Acetaminophen 500 MG TAB PO PRN (19:15)
[2018-12-14] MEDS: cefTRIAXone\\ROCEPHIN 1 GM in Sodium Chloride 0.9% 100 ML IVPB SCH (19:51)
[2018-12-14] MEDS: Famotidine 20 MG TAB PO SCH (19:52)
[2018-12-14] MEDS: Vancomycin HCl 1 GM in Premix Bag 1 BAG IVPB SCH (20:40)
--- NOTE | 2018-12-14 22:14 | HP ---
PRIMARY CARE PROVIDER: [place], [place]. PRIMARY ONCOLOGIST: Dr. Armani Abrams. CHIEF COMPLAINT: Inner thigh pain. HISTORY OF PRESENT ILLNESS: This is a 33-year-old female who presents to [facility] Emergency Department complaining of 3 to 4 day history of increasing bilateral inner thigh skin irritation and pain. The patient noted irritation to the inner thighs near her labia, worsening in the last 24 hours. The patient placed topical antibiotic ointment on the area in the last 24 hours and had her look at the area, noting that it looked like "hamburger." The patient noted some bleeding on her skin and irritation when trying to ambulate or walk with increased pain of the inner thighs. The patient denied any direct trauma, chemical or thermal teague or family members with similar symptoms. The patient denied any direct trauma or injury. The patient's history is significant for a uterine sarcoma, stage IV, undergoing current chemotherapy, completing her last treatment within the last 5-7 days. The patient noted some associated fever and chills, which have since resolved. In the emergency room, the patient underwent general evaluation, receiving IV vancomycin and clindamycin in addition to Zosyn, morphine sulfate and Zofran. The patient was transferred to the medical floor for further evaluation. PAST MEDICAL HISTORY: 1. 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 2. Chronic asthma. 3. Tobacco use. 4. Marijuana use. 5. Morbid obesity. PAST SURGICAL HISTORY: 1. Status post hysterectomy. 2. Status post left chest MediPort placement. CURRENT MEDICATIONS: 1. Albuterol sulfate HFA 2 puffs inhaled q.6 hours p.r.n. 2. Vitamin C 1000 mg p.o. daily. 3. Vitamin B12 1000 mcg p.o. daily. 4. Ferrous sulfate 65 mg p.o. daily. 5. Lasix 20 mg p.o. daily. 6. Letrozole 2.5 mg p.o. daily. 7. Multivitamin 1 tablet p.o. daily. ALLERGIES: NO KNOWN DRUG ALLERGIES. FAMILY HISTORY: Multiple members of the family with diabetes mellitus and chronic obstructive pulmonary disease. SOCIAL HISTORY: The patient resides in [place], [place]. Accompanied by her . Smokes up to half pack of cigarettes daily. Positive marijuana use regularly. No alcohol use. REVIEW OF SYSTEMS: CONSTITUTIONAL: Negative for weight loss or gain, ability to conduct usual activities. SKIN: Negative for rash, itching. EYES: Negative for double vision, pain. ENT/MOUTH: Negative for nose bleeding, neck stiffness, pain, tenderness. CARDIOVASCULAR: Negative for palpitations, dyspnea on exertion, orthopnea. RESPIRATORY: Negative for shortness of breath, wheezing, cough, hemoptysis, fever or night sweats. GASTROINTESTINAL: Negative for poor appetite, abdominal pain, heartburn, nausea, vomiting, constipation, or diarrhea. GENITOURINARY: Negative for urgency, frequency, dysuria, nocturia. MUSCULOSKELETAL: Negative for pain, swelling. NEUROLOGIC/PSYCHIATRIC: Negative for anxiety, depression. ALLERGY/IMMUNOLOGIC: Negative for skin rash, bleeding tendency. Otherwise negative except as stated per HPI. PHYSICAL EXAMINATION: VITAL SIGNS: On admission, blood pressure 108/71, pulse 109, respiratory rate 16, temperature 98.3 degrees Fahrenheit, O2 saturation 99% on room air. GENERAL APPEARANCE: This is a 33-year-old female, alert and oriented x3, pleasant, smiling, in no acute distress. HEENT: Pupils are equal, round, reactive to light and accommodation. Extraocular muscles are intact. No scleral icterus. No conjunctival injection. Nares are patent. OP is clear. Teeth in fair repair. NECK: Supple. No cervical adenopathy. No thyromegaly. No carotid bruits. No JVD appreciated. Cervical spine with full active and passive range of motion. No meningeal signs noted. CHEST: Lungs are clear to auscultation bilaterally. CARDIOVASCULAR EXAM: S1, S2 without noted murmur, rub, or gallop. ABDOMEN: Obese, soft, nontender, and nondistended. Bowel sounds are positive in all 4 quadrants. There is no palpable mass. No rebound or guarding appreciated. EXTREMITIES: Warm and dry with fair turgor. No clubbing, cyanosis, or asymmetric edema appreciated. Pulses palpable distally at the dorsalis pedis, posterior tibial, and popliteal arteries bilaterally. Capillary refill less than 2 seconds. SKIN: Bilateral proximal medial thigh with maceration approximately 5-6 cm in diameter with denuded superficial skin layer. Mild erythema peripherally. NEUROLOGIC: Cranial nerves 2 through 12 are grossly intact. No focal or lateralizing signs appreciated. PERTINENT LAB AND X-RAY FINDINGS: Sodium 137, potassium 4.0, chloride 102, CO2 of 23, BUN 11, creatinine 0.96, glucose 167. Lactic acid level ranged between 2.2 to 3.5, calcium 9.1, alkaline phosphatase 136. CBC showed a white blood cell count of 10.4, hemoglobin 10, hematocrit 31, platelet count 173 with normal differential. IMAGING: CT of the abdomen and pelvis dated 12/14/2018, showed hepatic and lung parenchymal metastases. ASSESSMENT/PLAN: 1. Bilateral inner thigh cellulitis. The patient will be admitted to the medical floor. We will continue vancomycin 1 g IV q.12 hours with additional Rocephin 1 g IV q.24 hours. We will consult Wound Care team for evaluation and local care. Prevent moisture buildup as clinically indicated. 2. Stage 4 uterine sarcoma with liver and pulmonary metastasis. Continue supportive management. Status post chemotherapy. No evidence of neutropenia. 3. Normocytic anemia. Suspect secondary to chemotherapy. Continue ferrous sulfate 65 mg daily. Serial H and H monitoring. No current evidence of active blood loss. 4. Chronic asthma. Stable currently. Continue albuterol sulfate HFA 2 puffs inhaled q.6 hours p.r.n. 5. Prophylaxis. Sequential compression devices while in bed. Pepcid 20 mg p.o. b.i.d. CODE STATUS: Full. Surrogate medical decision maker is the patient's spouse. Job ID: [id number]
[2018-12-15 07:01] LABS: Hemoglobin 9.1 g/dL (12.0-16.0); Mean Corpuscular HGB CONC 32.8 g/dL (32.0-36.0); Mean Corpuscular Hemoglobin 27.4 pg (27.0-31.0); Mean Corpuscular Volume 83.5 fL (78.0-98.0); Red Blood Cell (RBC) Count 3.31 mill/uL (4.20-5.40); White Blood Cell (WBC) Count 13.5 thou/uL (4.8-10.8)
[2018-12-15 07:09] LABS: Anion Gap 10 mmol/L (10-20); BUN (Urea Nitrogen) 7 mg/dL (7.0-18.7); Calc. Creatinine Clearance 174 mL/min (70-130); Calcium 8.7 mg/dL (7.8-10.44); Carbon Dioxide 26 mmol/L (22-29); Chloride 103 mmol/L (98-107); Estimated GFR-MDRD 81; Glucose 126 mg/dL (70-105); Potassium 4.1 mmol/L (3.5-5.1); Sodium 135 mmol/L (136-145)
[2018-12-15 07:28] LABS: Band 23 % (5-11); Lymphocytes 19 % (21-51); MDiff Complete? YES; Mean Platelet Volume 9.5 fL (7.4-10.4); Monocytes 11 % (0-10); Neutrophil 47 % (42-75); Platelet Count 111 thou/uL (130-400); Platelet Morphology Comment Appears Decreased; Polychromasia MODERATE = 3-4 cells (100X) (0-2/hpf); RBC Distribution Width 21.5 % (11.5-14.5)
[2018-12-15] MEDS: Multivit, Therapeutic 1 TAB PO SCH (09:20)
[2018-12-15] MEDS: Ascorbic Acid 500 mg Chewable Tablet PO SCH (09:21)
[2018-12-15] MEDS: Furosemide 20 MG TAB PO SCH (09:21)
[2018-12-15] MEDS: Famotidine 20 MG TAB PO SCH ×2 (09:22→20:09)
[2018-12-15] MEDS: Ferrous Sulfate 325 MG TAB PO SCH (09:22)
[2018-12-15] MEDS: Cyanocobalamin (Vitamin B-12) 1,000 MCG TAB PO SCH (09:22)
[2018-12-15] MEDS: Vancomycin HCl 1 GM in Premix Bag 1 BAG IVPB SCH ×2 (09:24→20:31)
[2018-12-15] MEDS: Letrozole 2.5 MG TAB PO SCH (09:43)
[2018-12-15] MEDS: Nystatin Powder 15 GM BOT TOP SCH ×2 (09:45→20:10)
--- NOTE | 2018-12-15 14:15 | PDOC.HOSPP ---
- Subjective Encounter Date: 12/15/18 Encounter Time: 11:00 Subjective: Patient seen and examined. No new complaints. No overnight events - Objective Vital Signs & Weight: Vital Signs (12 hours) Temp Pulse Resp BP Pulse Ox 12/15/18 11:10 98.7 F 104 H 16 136/81 99 12/15/18 07:29 98.5 F 104 H 16 114/68 99 12/15/18 05:42 98.5 F 105 H 20 120/81 99 Weight Weight 294 lb 2 oz I&O: 12/14/18 12/15/18 12/16/18 06:59 06:59 06:59 Intake Total 1200 Balance 1200 Result Diagrams: 12/15/18 06:35 12/15/18 06:35 Additional Labs: Accuchecks 12/15/18 11:16 POC Glucose 180 H Hospitalist ROS - Review of Systems Constitutional: denies: fever, chills, sweats, weakness, malaise, other ENT: denies: ear pain, ear discharge, nose pain, nose discharge, nose congestion , mouth pain, mouth swelling, throat pain, throat swelling, other Respiratory: denies: cough, dry, shortness of breath, hemoptysis, SOB with excertion, pleuritic pain, sputum, wheezing, other Cardiovascular: denies: chest pain, palpitations, orthopnea, paroxysmal noc. dyspnea, edema, light headedness, other Gastrointestinal: denies: nausea, vomiting, abdominal pain, diarrhea, constipation, melena, hematochezia, other Genitourinary: denies: dysuria, frequency, incontinence, hematuria, retention, other Musculoskeletal: denies: neck pain, shoulder pain, arm pain, back pain, hand pain, leg pain, foot pain, other Skin: reports: rash. denies: lesions, delvin, bruising, other - Medication Medications: Active Medications Generic Name Dose Route Start Last Admin Trade Name Freq PRN Reason Stop Dose Admin Acetaminophen 1,000 mg 12/14/18 16:11 12/14/18 19:15 Tylenol PO 1,000 mg Q6H PRN Administration Mild Pain (1-3) Ascorbic Acid 1,000 mg 12/15/18 09:00 12/15/18 09:21 Vitamin C PO 1,000 mg DAILY ELIZABETH Administration Cyanocobalamin 1,000 mcg 12/15/18 09:00 12/15/18 09:22 Vitamin B-12 PO 1,000 mcg DAILY ELIZABETH Administration Famotidine 20 mg 12/14/18 21:00 12/15/18 09:22 Pepcid PO 20 mg BID ELIZABETH Administration Ferrous Sulfate 325 mg 12/15/18 09:00 12/15/18 09:22 Feosol PO 325 mg DAILY ELIZABETH Administration Furosemide 20 mg 12/15/18 09:00 12/15/18 09:21 Lasix PO 20 mg DAILY ELIZABETH Administration Ceftriaxone Sodium 1 gm/ 100 mls @ 200 mls/hr 12/14/18 20:00 12/14/18 19:51 Sodium Chloride IVPB 100 mls Q24HR ELIZABETH Administration Vancomycin HCl 1 gm/ Device 200 mls @ 200 mls/hr 12/14/18 21:00 12/15/18 09: 24 IVPB 200 mls Q12HR ELIZABETH Administration Letrozole 2.5 mg 12/15/18 09:00 12/15/18 09:43 Femara PO 2.5 mg DAILY ELIZABETH Administration Multivitamins 1 tab 12/15/18 09:00 12/15/18 09:20 Theragran PO 1 tab DAILY ELIZABETH Administration Nystatin 0 gm 12/15/18 09:00 12/15/18 09:45 Mycostatin Powder TOP 1 applic BID ELIZABETH Administration Ondansetron HCl 4 mg 12/14/18 16:11 12/14/18 19:15 Zofran IVP 4 mg Q6H PRN Administration Nausea/Vomiting Sodium Chloride 10 ml 12/14/18 21:00 12/15/18 09:34 Flush - Normal Saline IVF 10 ml Q12HR ELIZABETH Administration - Exam General Appearance: NAD, awake alert Eye: PERRL, anicteric sclera ENT: normocephalic atraumatic, no oropharyngeal lesions Neck: supple, symmetric, no JVD, no thyromegaly Heart: RRR, no murmur, no gallops, no rubs Respiratory: CTAB, no wheezes, no rales, no ronchi Gastrointestinal: soft, non-tender, non-distended, normal bowel sounds Gastrointestinal - other findings: morbid obesity Extremities: no cyanosis, no clubbing Skin: normal turgor, no lesions Neurological: cranial nerve grossly intact, no focal deficits Musculoskeletal: normal tone, normal strength Psychiatric: normal affect, normal behavior Hosp A/P (1) Cellulitis Code(s): L03.90 - CELLULITIS, UNSPECIFIED Status: Acute Qualifiers: Site of cellulitis of trunk: perineum (2) Endometrial carcinoma Status: Chronic (3) Bandemia Code(s): D72.825 - BANDEMIA Status: Acute (4) Morbid obesity with BMI of 45.0-49.9, adult Code(s): E66.01 - MORBID (SEVERE) OBESITY DUE TO EXCESS CALORIES; Z68.42 - BODY MASS INDEX (BMI) 45.0-49.9, ADULT Status: Chronic (5) Anemia, normocytic normochromic Code(s): D64.9 - ANEMIA, UNSPECIFIED Status: Chronic (6) Metastasis to liver Code(s): C78.7 - SECONDARY MALIG NEOPLASM OF LIVER AND INTRAHEPATIC BILE DUCT Status: Chronic (7) Metastasis to lung Code(s): C78.00 - SECONDARY MALIGNANT NEOPLASM OF UNSPECIFIED LUNG Status: Chronic Qualifiers: Laterality: unspecified laterality Qualified Code(s): C78.00 - Secondary malignant neoplasm of unspecified lung - Plan old records reviewed/req, continue antibiotics 12/15/18 continue current antibiotics also has component of fungal infection, will add nystatin medication reviewed as above symptomatic treatment
[2018-12-15] MEDS: Acetaminophen 500 MG TAB PO PRN (16:48)
[2018-12-15] MEDS: cefTRIAXone\\ROCEPHIN 1 GM in Sodium Chloride 0.9% 100 ML IVPB SCH (20:08)
[2018-12-16 08:35] LABS: Anion Gap 9 mmol/L (10-20); BUN (Urea Nitrogen) 6 mg/dL (7.0-18.7); Calc. Creatinine Clearance 172 mL/min (70-130); Calcium 8.6 mg/dL (7.8-10.44); Carbon Dioxide 28 mmol/L (22-29); Chloride 102 mmol/L (98-107); Estimated GFR-MDRD 80; Glucose 121 mg/dL (70-105); Sodium 135 mmol/L (136-145)
[2018-12-16 08:40] LABS: Anisocytosis MODERATE=16-30 cells (100X) (0-5/hpf); Band 20 % (5-11); Differential Comment Blast-Like Cell(s); Hemoglobin 9.4 g/dL (12.0-16.0); Lymphocytes 15 % (21-51); MDiff Complete? YES; Mean Corpuscular HGB CONC 32.1 g/dL (32.0-36.0); Mean Corpuscular Volume 83.9 fL (78.0-98.0); Mean Platelet Volume 10.2 fL (7.4-10.4); Metamyelocyte 3 % (0-0); Monocytes 5 % (0-10); Myelocyte 4 % (0-0); Neutrophil 48 % (42-75); Nucleated RBC 2 % (0); Platelet Count 83 thou/uL (130-400); Platelet Morphology Comment Appears Decreased; Polychromasia MODERATE = 3-4 cells (100X) (0-2/hpf); RBC Distribution Width 21.8 % (11.5-14.5); Reactive Lymphocytes 3 % (0-10); Reflex for Review?? YES
[2018-12-16] MEDS: Cyanocobalamin (Vitamin B-12) 1,000 MCG TAB PO SCH (10:37)
[2018-12-16] MEDS: Multivit, Therapeutic 1 TAB PO SCH (10:37)
[2018-12-16] MEDS: Famotidine 20 MG TAB PO SCH ×2 (10:37→20:09)
[2018-12-16] MEDS: Ferrous Sulfate 325 MG TAB PO SCH (10:38)
[2018-12-16] MEDS: Ascorbic Acid 500 mg Chewable Tablet PO SCH (10:38)
[2018-12-16] MEDS: Furosemide 20 MG TAB PO SCH (10:38)
[2018-12-16] MEDS: Letrozole 2.5 MG TAB PO SCH (10:42)
[2018-12-16] MEDS: Vancomycin HCl 1 GM in Premix Bag 1 BAG IVPB SCH ×2 (10:48→20:42)
--- NOTE | 2018-12-16 10:56 | PDOC.HOSPP ---
- Subjective Encounter Date: 12/16/18 Encounter Time: 10:00 Subjective: Patient seen and examined. No new complaints. No overnight events - Objective Vital Signs & Weight: Vital Signs (12 hours) Temp Pulse Resp BP Pulse Ox 12/16/18 07:21 98.4 F 91 16 111/60 99 12/16/18 05:34 98.5 F 102 H 18 111/68 99 12/16/18 00:00 98.4 F 111 H 19 118/66 99 Weight Admit Weight 294 lb 2 oz Weight 294 lb 2 oz I&O: 12/15/18 12/16/18 12/17/18 06:59 06:59 06:59 Intake Total 1200 780 Balance 1200 780 Result Diagrams: 12/16/18 08:02 12/16/18 08:02 Additional Labs: Accuchecks 12/15/18 11:16 POC Glucose 180 H Hospitalist ROS - Review of Systems Constitutional: denies: fever, chills, sweats, weakness, malaise, other Eyes: denies: pain, vision change, conjunctivae inflammation, eyelid inflammation, redness, other ENT: denies: ear pain, ear discharge, nose pain, nose discharge, nose congestion , mouth pain, mouth swelling, throat pain, throat swelling, other Respiratory: denies: cough, dry, shortness of breath, hemoptysis, SOB with excertion, pleuritic pain, sputum, wheezing, other Cardiovascular: denies: chest pain, palpitations, orthopnea, paroxysmal noc. dyspnea, edema, light headedness, other Gastrointestinal: denies: nausea, vomiting, abdominal pain, diarrhea, constipation, melena, hematochezia, other Genitourinary: denies: dysuria, frequency, incontinence, hematuria, retention, other Musculoskeletal: denies: neck pain, shoulder pain, arm pain, back pain, hand pain, leg pain, foot pain, other Skin: reports: rash. denies: lesions, delvin, bruising, other - Medication Medications: Active Medications Generic Name Dose Route Start Last Admin Trade Name Freq PRN Reason Stop Dose Admin Acetaminophen 1,000 mg 12/14/18 16:11 12/15/18 16:48 Tylenol PO 1,000 mg Q6H PRN Administration Mild Pain (1-3) Ascorbic Acid 1,000 mg 12/15/18 09:00 12/15/18 09:21 Vitamin C PO 1,000 mg DAILY ELIZABETH Administration Cyanocobalamin 1,000 mcg 12/15/18 09:00 12/15/18 09:22 Vitamin B-12 PO 1,000 mcg DAILY ELIZABETH Administration Famotidine 20 mg 12/14/18 21:00 12/15/18 20:09 Pepcid PO 20 mg BID ELIZABETH Administration Ferrous Sulfate 325 mg 12/15/18 09:00 12/15/18 09:22 Feosol PO 325 mg DAILY ELIZABETH Administration Furosemide 20 mg 12/15/18 09:00 12/15/18 09:21 Lasix PO 20 mg DAILY ELIZABETH Administration Ceftriaxone Sodium 1 gm/ 100 mls @ 200 mls/hr 12/14/18 20:00 12/15/18 20:08 Sodium Chloride IVPB 100 mls Q24HR ELIZABETH Administration Vancomycin HCl 1 gm/ Device 200 mls @ 200 mls/hr 12/14/18 21:00 12/15/18 20: 31 IVPB 200 mls Q12HR ELIZABETH Administration Letrozole 2.5 mg 12/15/18 09:00 12/15/18 09:43 Femara PO 2.5 mg DAILY ELIZABETH Administration Multivitamins 1 tab 12/15/18 09:00 12/15/18 09:20 Theragran PO 1 tab DAILY ELIAZBETH Administration Nystatin 0 gm 12/15/18 09:00 12/15/18 20:10 Mycostatin Powder TOP 1 applic BID ELIZABETH Administration Ondansetron HCl 4 mg 12/14/18 16:11 12/14/18 19:15 Zofran IVP 4 mg Q6H PRN Administration Nausea/Vomiting Sodium Chloride 10 ml 12/14/18 21:00 12/15/18 20:10 Flush - Normal Saline IVF 10 ml Q12HR ELIZABETH Administration - Exam General Appearance: NAD, awake alert Eye: PERRL, anicteric sclera ENT: normocephalic atraumatic, no oropharyngeal lesions Neck: supple, symmetric, no JVD, no thyromegaly Heart: RRR, no murmur, no gallops, no rubs, normal peripheral pulses Respiratory: CTAB, no wheezes, no rales, no ronchi, normal chest expansion Gastrointestinal: soft, non-tender, non-distended, normal bowel sounds Gastrointestinal - other findings: morbid obesity+ Extremities: no cyanosis, no clubbing Skin: normal turgor, no lesions Neurological: cranial nerve grossly intact, no focal deficits Musculoskeletal: normal tone, normal strength, no muscle wasting Psychiatric: normal affect, normal behavior Hosp A/P (1) Cellulitis Code(s): L03.90 - CELLULITIS, UNSPECIFIED Status: Acute Qualifiers: Site of cellulitis of trunk: perineum (2) Endometrial carcinoma Status: Chronic (3) Bandemia Code(s): D72.825 - BANDEMIA Status: Acute (4) Morbid obesity with BMI of 45.0-49.9, adult Code(s): E66.01 - MORBID (SEVERE) OBESITY DUE TO EXCESS CALORIES; Z68.42 - BODY MASS INDEX (BMI) 45.0-49.9, ADULT Status: Chronic (5) Anemia, normocytic normochromic Code(s): D64.9 - ANEMIA, UNSPECIFIED Status: Chronic (6) Metastasis to liver Code(s): C78.7 - SECONDARY MALIG NEOPLASM OF LIVER AND INTRAHEPATIC BILE DUCT Status: Chronic (7) Metastasis to lung Code(s): C78.00 - SECONDARY MALIGNANT NEOPLASM OF UNSPECIFIED LUNG Status: Chronic Qualifiers: Laterality: unspecified laterality Qualified Code(s): C78.00 - Secondary malignant neoplasm of unspecified lung - Plan old records reviewed/req, continue antibiotics 12/15/18 continue current antibiotics also has component of fungal infection, will add nystatin medication reviewed as above symptomatic treatment 12/16/18 pt has elevated wbc count, but no fever she has fungal infection in thigh area, will give iv diflucan continue rocephin and vancomycin for possible super bacterial infection skin care advised about weight loss but pt is not interested will dc zofran as we are adding diflucan to prevent qt prolongation
[2018-12-16] MEDS ORDERED: Fluconazole In NaCl,Iso-Osm 200 MG in Premix Bag 1 BAG IVPB SCH ×2 (11:00)
[2018-12-16] MEDS: Fluconazole In NaCl,Iso-Osm 200 MG in Premix Bag 1 BAG IVPB SCH (14:45)
[2018-12-16] MEDS: Nystatin Powder 15 GM BOT TOP SCH ×2 (14:47→20:11)
[2018-12-16] MEDS: cefTRIAXone\\ROCEPHIN 1 GM in Sodium Chloride 0.9% 100 ML IVPB SCH (20:09)
[2018-12-16] MEDS: Acetaminophen 500 MG TAB PO PRN (20:09)
[2018-12-17] MEDS: Letrozole 2.5 MG TAB PO SCH (09:04)
[2018-12-17] MEDS: Famotidine 20 MG TAB PO SCH ×2 (09:05→21:40)
[2018-12-17] MEDS: Ascorbic Acid 500 mg Chewable Tablet PO SCH (09:05)
[2018-12-17] MEDS: Furosemide 20 MG TAB PO SCH (09:06)
[2018-12-17] MEDS: Multivit, Therapeutic 1 TAB PO SCH (09:06)
[2018-12-17] MEDS: Ferrous Sulfate 325 MG TAB PO SCH (09:07)
[2018-12-17] MEDS: Cyanocobalamin (Vitamin B-12) 1,000 MCG TAB PO SCH (09:07)
[2018-12-17] MEDS: Vancomycin HCl 1 GM in Premix Bag 1 BAG IVPB SCH ×2 (09:09→22:20)
[2018-12-17] MEDS: Nystatin Powder 15 GM BOT TOP SCH ×2 (09:09→21:40)
--- NOTE | 2018-12-17 11:55 | PDOC.HOSPP ---
- Subjective Encounter Date: 12/17/18 Encounter Time: 10:35 Subjective: Patient seen and examined. No new complaints. No overnight events - Objective Vital Signs & Weight: Vital Signs (12 hours) Temp Pulse Resp BP Pulse Ox 12/17/18 08:09 98.6 F 95 12 132/84 100 12/17/18 05:22 98.7 F 99 19 112/75 100 12/17/18 00:13 98.9 F 109 H 20 136/93 H 100 Weight Admit Weight 294 lb 2 oz Weight 294 lb 2 oz I&O: 12/16/18 12/17/18 12/18/18 06:59 06:59 06:59 Intake Total 780 1020 Balance 780 1020 Result Diagrams: 12/16/18 08:02 12/16/18 08:02 Hospitalist ROS - Review of Systems ENT: denies: ear pain, ear discharge, nose pain, nose discharge, nose congestion , mouth pain, mouth swelling, throat pain, throat swelling, other Respiratory: denies: cough, dry, shortness of breath, hemoptysis, SOB with excertion, pleuritic pain, sputum, wheezing, other Cardiovascular: denies: chest pain, palpitations, orthopnea, paroxysmal noc. dyspnea, edema, light headedness, other Gastrointestinal: denies: nausea, vomiting, abdominal pain, diarrhea, constipation, melena, hematochezia, other Genitourinary: denies: dysuria, frequency, incontinence, hematuria, retention, other Musculoskeletal: denies: neck pain, shoulder pain, arm pain, back pain, hand pain, leg pain, foot pain, other - Medication Medications: Active Medications Generic Name Dose Route Start Last Admin Trade Name Carlq PRN Reason Stop Dose Admin Acetaminophen 1,000 mg 12/14/18 16:11 12/16/18 20:09 Tylenol PO 1,000 mg Q6H PRN Administration Mild Pain (1-3) Ascorbic Acid 1,000 mg 12/15/18 09:00 12/17/18 09:05 Vitamin C PO 1,000 mg DAILY ELIZABETH Administration Cyanocobalamin 1,000 mcg 12/15/18 09:00 12/17/18 09:07 Vitamin B-12 PO 1,000 mcg DAILY ELIZABETH Administration Famotidine 20 mg 12/14/18 21:00 12/17/18 09:05 Pepcid PO 20 mg BID ELIZABETH Administration Ferrous Sulfate 325 mg 12/15/18 09:00 12/17/18 09:07 Feosol PO 325 mg DAILY ELIZABETH Administration Furosemide 20 mg 12/15/18 09:00 12/17/18 09:06 Lasix PO 20 mg DAILY ELIZABETH Administration Ceftriaxone Sodium 1 gm/ 100 mls @ 200 mls/hr 12/14/18 20:00 12/16/18 20:09 Sodium Chloride IVPB 100 mls Q24HR ELIZABETH Administration Vancomycin HCl 1 gm/ Device 200 mls @ 200 mls/hr 12/14/18 21:00 12/17/18 09: 09 IVPB 200 mls Q12HR ELIZABETH Administration Fluconazole/Sodium Chloride 100 mls @ 100 mls/hr 12/16/18 12:00 12/16/18 14: 45 200 mg/ Device IVPB 100 mls 1200 ELIZABETH Administration Letrozole 2.5 mg 12/15/18 09:00 12/17/18 09:04 Femara PO 2.5 mg DAILY ELIZABETH Administration Multivitamins 1 tab 12/15/18 09:00 12/17/18 09:06 Theragran PO 1 tab DAILY ELIZABETH Administration Nystatin 0 gm 12/15/18 09:00 12/17/18 09:09 Mycostatin Powder TOP 1 applic BID ELIZABETH Administration Sodium Chloride 10 ml 12/14/18 21:00 12/17/18 09:10 Flush - Normal Saline IVF 10 ml Q12HR ELIZABETH Administration - Exam General Appearance: NAD, awake alert Eye: PERRL, anicteric sclera ENT: normocephalic atraumatic, no oropharyngeal lesions Neck: supple, symmetric, no JVD, no thyromegaly Heart: RRR, no murmur, no gallops, no rubs Respiratory: CTAB, no wheezes, no rales, no ronchi Gastrointestinal: soft, non-tender, non-distended, normal bowel sounds Extremities: no cyanosis, no clubbing Skin: normal turgor, no lesions, no rashes Neurological: cranial nerve grossly intact, no focal deficits Musculoskeletal: normal tone, normal strength Psychiatric: normal affect, normal behavior Hosp A/P (1) Cellulitis Code(s): L03.90 - CELLULITIS, UNSPECIFIED Status: Acute Qualifiers: Site of cellulitis of trunk: perineum (2) Endometrial carcinoma Status: Chronic (3) Bandemia Code(s): D72.825 - BANDEMIA Status: Acute (4) Morbid obesity with BMI of 45.0-49.9, adult Code(s): E66.01 - MORBID (SEVERE) OBESITY DUE TO EXCESS CALORIES; Z68.42 - BODY MASS INDEX (BMI) 45.0-49.9, ADULT Status: Chronic (5) Anemia, normocytic normochromic Code(s): D64.9 - ANEMIA, UNSPECIFIED Status: Chronic (6) Metastasis to liver Code(s): C78.7 - SECONDARY MALIG NEOPLASM OF LIVER AND INTRAHEPATIC BILE DUCT Status: Chronic (7) Metastasis to lung Code(s): C78.00 - SECONDARY MALIGNANT NEOPLASM OF UNSPECIFIED LUNG Status: Chronic Qualifiers: Laterality: unspecified laterality Qualified Code(s): C78.00 - Secondary malignant neoplasm of unspecified lung - Plan old records reviewed/req, plan discussed w/ family, continue antibiotics 12/15/18 continue current antibiotics also has component of fungal infection, will add nystatin medication reviewed as above symptomatic treatment 12/16/18 pt has elevated wbc count, but no fever she has fungal infection in thigh area, will give iv diflucan continue rocephin and vancomycin for possible super bacterial infection skin care advised about weight loss but pt is not interested will dc zofran as we are adding diflucan to prevent qt prolongation 12/17/18 cellulitis and rash improving will plan for discharge tomorrow medication reviewed as above symptomatic treatment
[2018-12-17] MEDS: Fluconazole In NaCl,Iso-Osm 200 MG in Premix Bag 1 BAG IVPB SCH (12:28)
[2018-12-17] MEDS: cefTRIAXone\\ROCEPHIN 1 GM in Sodium Chloride 0.9% 100 ML IVPB SCH (21:36)
[2018-12-18 07:47] LABS: Anion Gap 12 mmol/L (10-20); BUN (Urea Nitrogen) Less than 4 mg/dL (7.0-18.7); CRP (Inflammatory) 2.57 mg/dL (= or < 0.5); Calc. Creatinine Clearance 178 mL/min (70-130); Calcium 8.9 mg/dL (7.8-10.44); Carbon Dioxide 26 mmol/L (22-29); Chloride 104 mmol/L (98-107); Estimated GFR-MDRD 82; Glucose 110 mg/dL (70-105); Potassium 3.9 mmol/L (3.5-5.1); Sodium 138 mmol/L (136-145)
[2018-12-18 08:44] LABS: Anisocytosis SLIGHT = 6-15 cells (100X) (0-5/hpf); Band 13 % (5-11); Hemoglobin 9.3 g/dL (12.0-16.0); Lymphocytes 16 % (21-51); MDiff Complete? YES; Mean Corpuscular HGB CONC 31.3 g/dL (32.0-36.0); Mean Corpuscular Hemoglobin 26.5 pg (27.0-31.0); Mean Corpuscular Volume 84.8 fL (78.0-98.0); Metamyelocyte 6 % (0-0); Monocytes 4 % (0-10); Myelocyte 2 % (0-0); Neutrophil 59 % (42-75); Nucleated RBC 3 % (0); Platelet Count 83 thou/uL (130-400); Platelet Morphology Comment Appears Decreased; Polychromasia MODERATE = 3-4 cells (100X) (0-2/hpf); RBC Distribution Width 22.3 % (11.5-14.5); Red Blood Cell (RBC) Count 3.51 mill/uL (4.20-5.40); Toxic Granulation SLIGHT; White Blood Cell (WBC) Count 28.2 thou/uL (4.8-10.8)
[2018-12-18] MEDS: Vancomycin HCl 1 GM in Premix Bag 1 BAG IVPB SCH (09:13)
[2018-12-18] MEDS: Ferrous Sulfate 325 MG TAB PO SCH (09:16)
[2018-12-18] MEDS: Multivit, Therapeutic 1 TAB PO SCH (09:16)
[2018-12-18] MEDS: Ascorbic Acid 500 mg Chewable Tablet PO SCH (09:16)
[2018-12-18] MEDS: Letrozole 2.5 MG TAB PO SCH (09:16)
[2018-12-18] MEDS: Famotidine 20 MG TAB PO SCH (09:16)
[2018-12-18] MEDS: Cyanocobalamin (Vitamin B-12) 1,000 MCG TAB PO SCH (09:17)
[2018-12-18] MEDS: Furosemide 20 MG TAB PO SCH (09:17)
[2018-12-18] MEDS: Nystatin Powder 15 GM BOT TOP SCH (09:21)
--- NOTE | 2018-12-18 10:10 | PDOC.HOSPP ---
- Subjective Encounter Date: 12/18/18 Encounter Time: 09:35 Subjective: Patient seen and examined. No new complaints. No overnight events - Objective Vital Signs & Weight: Vital Signs (12 hours) Temp Pulse Resp BP BP Pulse Ox 12/18/18 08:00 98.6 F 98 18 134/81 99 12/18/18 04:00 98.6 F 98 16 93/54 L 99 12/18/18 00:00 99.0 F 97 18 122/64 99 Weight Admit Weight 294 lb 2 oz Weight 294 lb 2 oz I&O: 12/17/18 12/18/18 12/19/18 06:59 06:59 06:59 Intake Total 1020 Balance 1020 Result Diagrams: 12/18/18 07:28 12/18/18 07:28 Hospitalist ROS - Review of Systems Eyes: denies: pain, vision change, conjunctivae inflammation, eyelid inflammation, redness, other ENT: denies: ear pain, ear discharge, nose pain, nose discharge, nose congestion , mouth pain, mouth swelling, throat pain, throat swelling, other Respiratory: denies: cough, dry, shortness of breath, hemoptysis, SOB with excertion, pleuritic pain, sputum, wheezing, other Cardiovascular: denies: chest pain, palpitations, orthopnea, paroxysmal noc. dyspnea, edema, light headedness, other Gastrointestinal: denies: nausea, vomiting, abdominal pain, diarrhea, constipation, melena, hematochezia, other Genitourinary: denies: dysuria, frequency, incontinence, hematuria, retention, other Musculoskeletal: denies: neck pain, shoulder pain, arm pain, back pain, hand pain, leg pain, foot pain, other Skin: denies: rash, lesions, delvin, bruising, other - Medication Medications: Active Medications Generic Name Dose Route Start Last Admin Trade Name Freq PRN Reason Stop Dose Admin Acetaminophen 1,000 mg 12/14/18 16:11 12/16/18 20:09 Tylenol PO 1,000 mg Q6H PRN Administration Mild Pain (1-3) Ascorbic Acid 1,000 mg 12/15/18 09:00 12/18/18 09:16 Vitamin C PO 1,000 mg DAILY ELIZABETH Administration Cyanocobalamin 1,000 mcg 12/15/18 09:00 12/18/18 09:17 Vitamin B-12 PO 1,000 mcg DAILY ELIZABETH Administration Famotidine 20 mg 12/14/18 21:00 12/18/18 09:16 Pepcid PO 20 mg BID ELIZABETH Administration Ferrous Sulfate 325 mg 12/15/18 09:00 12/18/18 09:16 Feosol PO 325 mg DAILY ELIZABETH Administration Furosemide 20 mg 12/15/18 09:00 12/18/18 09:17 Lasix PO 20 mg DAILY ELIZABETH Administration Ceftriaxone Sodium 1 gm/ 100 mls @ 200 mls/hr 12/14/18 20:00 12/17/18 21:36 Sodium Chloride IVPB 100 mls Q24HR ELIZABETH Administration Vancomycin HCl 1 gm/ Device 200 mls @ 200 mls/hr 12/14/18 21:00 12/18/18 09: 13 IVPB 200 mls Q12HR ELIZABETH Administration Fluconazole/Sodium Chloride 100 mls @ 100 mls/hr 12/16/18 12:00 12/17/18 12: 28 200 mg/ Device IVPB 100 mls 1200 ELIZABETH Administration Letrozole 2.5 mg 12/15/18 09:00 12/18/18 09:16 Femara PO 2.5 mg DAILY ELIZABETH Administration Multivitamins 1 tab 12/15/18 09:00 12/18/18 09:16 Theragran PO 1 tab DAILY ELIZABETH Administration Nystatin 0 gm 12/15/18 09:00 12/18/18 09:21 Mycostatin Powder TOP 1 applic BID ELIZABETH Administration Sodium Chloride 10 ml 12/14/18 21:00 12/18/18 09:22 Flush - Normal Saline IVF 10 ml Q12HR ELIZABETH Administration - Exam General Appearance: NAD, awake alert Eye: PERRL, anicteric sclera ENT: normocephalic atraumatic, no oropharyngeal lesions Neck: supple, symmetric, no JVD, no thyromegaly Heart: RRR, no murmur, no gallops, no rubs Respiratory: CTAB, no wheezes, no rales, no ronchi Gastrointestinal: soft, non-tender, non-distended, normal bowel sounds Extremities: no cyanosis, no clubbing, no edema Skin: normal turgor, no lesions Neurological: cranial nerve grossly intact, no focal deficits Musculoskeletal: normal tone, normal strength Psychiatric: normal affect, normal behavior Hosp A/P (1) Cellulitis Code(s): L03.90 - CELLULITIS, UNSPECIFIED Status: Acute Qualifiers: Site of cellulitis of trunk: perineum (2) Endometrial carcinoma Status: Chronic (3) Bandemia Code(s): D72.825 - BANDEMIA Status: Acute (4) Morbid obesity with BMI of 45.0-49.9, adult Code(s): E66.01 - MORBID (SEVERE) OBESITY DUE TO EXCESS CALORIES; Z68.42 - BODY MASS INDEX (BMI) 45.0-49.9, ADULT Status: Chronic (5) Anemia, normocytic normochromic Code(s): D64.9 - ANEMIA, UNSPECIFIED Status: Chronic (6) Metastasis to liver Code(s): C78.7 - SECONDARY MALIG NEOPLASM OF LIVER AND INTRAHEPATIC BILE DUCT Status: Chronic (7) Metastasis to lung Code(s): C78.00 - SECONDARY MALIGNANT NEOPLASM OF UNSPECIFIED LUNG Status: Chronic Qualifiers: Laterality: unspecified laterality Qualified Code(s): C78.00 - Secondary malignant neoplasm of unspecified lung - Plan old records reviewed/req, plan discussed w/ family, continue antibiotics 12/15/18 continue current antibiotics also has component of fungal infection, will add nystatin medication reviewed as above symptomatic treatment 12/16/18 pt has elevated wbc count, but no fever she has fungal infection in thigh area, will give iv diflucan continue rocephin and vancomycin for possible super bacterial infection skin care advised about weight loss but pt is not interested will dc zofran as we are adding diflucan to prevent qt prolongation 12/17/18 cellulitis and rash improving will plan for discharge tomorrow medication reviewed as above symptomatic treatment 12/18/18 she has significant clinical improvement in her cellulitis and rash her bandemia and elevated wbc count is related with leukemoid reaction with tumor, this is not related with sepsis and current clinica picture is not supportive of any infection at this time will dc medication reviewed as above symptomatic treatment
--- NOTE | 2018-12-18 10:48 | DIS ---
DATE OF ADMISSION: 12/14/2018 DATE OF DISCHARGE: 12/18/2018 PRIMARY CARE PHYSICIAN: [facility]. DISCHARGE DISPOSITION: Home. PRIMARY DISCHARGE DIAGNOSES: 1. Bilateral thigh cellulitis with fungal infection. 2. Leukocytosis with bandemia, likely due to leukemoid reaction from tumor. SECONDARY DISCHARGE DIAGNOSES: Endometrial carcinoma with metastasis, morbid obesity with BMI of 47, and anemia normocytic normochromic. PRIMARY PROCEDURE/OPERATION: None. RADIOLOGIST INVESTIGATION: Abdomen and pelvis CT scan. SIGNIFICANT LABORATORY DATA: WBC 28.2, hemoglobin 9.3, platelet 83. Sodium 138, creatinine 0.94. CRP 2.57. Blood culture negative. DISCHARGE MEDICATIONS: 1. Keflex 500 mg t.i.d. for 10 days. 2. Doxycycline 100 mg twice daily for 10 days. 3. Nystatin topical application t.i.d. 4. Multivitamin one tablet daily. 5. Letrozole 2.5 mg daily. 6. Lasix 20 mg daily. 7. Ferrous sulfate one tablet daily. 8. Vitamin B12 of 1000 mcg p.o. daily. 9. Vitamin C 1000 mg daily. 10. Ventolin HFA 2 puffs q.6 hourly p.r.n. 11. Prochlorperazine 10 mg q.4 hourly p.r.n. 12. Promethazine 25 mg q.6 hourly p.r.n. CONTRAINDICATION: None. CODE STATUS: Full code. INPATIENT CONDUCTOR SLEEPING CAR: None. ALLERGIES: NO KNOWN DRUG ALLERGIES. DISCHARGE PLAN: Posthospital, the patient will follow up with her Oncology as instructed for chemotherapy and the patient will follow up with her primary care physician at [facility]. 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 The patient was admitted by Dr. Anderson. Please see his H and P for further details. The patient was having inner thigh cellulitis. When we examine her, it was consistent with fungal infection with superinfection with bacteria. The patient was admitted to the medical floor. She was treated with Rocephin and vancomycin because the patient was having fungal infection. We also treated while in hospital with Diflucan and topical nystatin powder application over affected area. This patient's WBC count was keep going up and blood cultures remain negative and the patient remained afebrile, and her overall clinical picture is not consistent with infection, but rather leukemoid reaction from tumor that is most likely scenario with worsening leukocytosis and bandemia. On discharge, we are changing to p.o. Keflex and doxycycline as well as nystatin topical application. The patient is medically stable otherwise. She will follow up with her Oncology for ongoing treatment as well as primary care physician. While in hospital, we provided the patient education about weight loss as well as dietary education is given for weight loss and skin care was discussed with her. Overall, the patient is medically stable for discharge today. Job ID: [id number]
[2018-12-18 11:54] VITALS: BP 111/74; TEMP 98.5
== END 2018-12-18 12:40 | disposition home or self-care (01) | DRG 603 ==
LOC: ERS 05:06 → ERHOLD 10:50 → T4-B 14:32
PROVIDERS: ADMIT Internal Medicine; ATTEND Internal Medicine
DX: L03.116 Cellulitis of left lower limb (principal); C78.7 Secondary malignant neoplasm of liver and intrahepatic bile duct; C78.00 Secondary malignant neoplasm of unspecified lung; Z68.42 Body mass index [BMI] 45.0-49.9, adult; B36.9 Superficial mycosis, unspecified; L03.115 Cellulitis of right lower limb; C55 Malignant neoplasm of uterus, part unspecified; F17.210 Nicotine dependence, cigarettes, uncomplicated; J45.909 Unspecified asthma, uncomplicated; E66.01 Morbid (severe) obesity due to excess calories; D72.823 Leukemoid reaction; D64.9 Anemia, unspecified; Z79.899 Other long term (current) drug therapy; Z90.710 Acquired absence of both cervix and uterus
CPT/HCPCS: 36415; 36416; 74177; 80048; 80053; 80202; 83605; 85007; 85025; 85027; 85060; 86140; 87040; 96361; 96365; 96366; 96367; 96375; 96376; J0696; J1450; J2270; J2405; J2543; J3370; J3490; Q9966

== ENCOUNTER 2018-12-20 08:26 | Outpatient (CLI) | payer MEDICAID ==
--- NOTE | 2018-12-20 09:30 | CT ---
CT Chest Abd Pelvis W Con History: Metastatic uterine sarcoma Comparison: CT abdomen pelvis December 14, 2018.. CT chest September 19, 2018 Findings: The urinary masses are completely unchanged including. Visual nodules. No pneumothorax. No effusion. No airspace consolidation. Port catheter tip is in the left brachiocephalic vein. No displaced rib fracture. No suspicious osteo lytic or osteoblastic lesions. No thoracic or lumbar spine compression deformity. Sternum and manubrium are intact. Hepatic metastatic disease is unchanged from the 12/14/2018 exam. Spleen is unremarkable as well as t he pancreas. Aortoiliac contour is nonaneurysmal. Midline abdominal scar with small fat-containing umbilical hernia. No dilated loops of large or small bowel. No significant retroperitoneal adenopathy. No free intraperitoneal gas or fluid. Gallbladder is unrem arkable. No hydronephrosis. Apparent wall thickening of the cecum is likely due to incomplete admixing of contrast material cysts portion of the colon was normal 6 days prior. Impression: Stable metastatic disease. Unchanged appearance of the hepatic and pulmonary metastasis.
[2018-12-20] MEDS ORDERED: ISOVUE-370 76%-LOCM 1 ML ONE (12:18)
== END 2018-12-20 08:27 | disposition home or self-care (01) ==
LOC: BICCT 08:26
PROVIDERS: ATTEND Internal Medicine Hematology & Oncology
DX: C54.1 Malignant neoplasm of endometrium (principal); C78.00 Secondary malignant neoplasm of unspecified lung; C78.7 Secondary malignant neoplasm of liver and intrahepatic bile duct
CPT/HCPCS: 71260; 74177; Q9966

== ENCOUNTER 2019-01-05 09:44 | Day surgery (SDC) | payer SELFPAY ==
[~2019-01-05 09:44] MED LIST changes: +DEXAMETHASONE SOD PHOSPHATE IVPB SCH; +GEMCITABINE HCL IVPB SCH; +ONDANSETRON HCL IVPB SCH; -PEGFILGRASTIM-JMDB 6 MG/0.6 ML SYRINGE SQ SCH; +SODIUM CHLORIDE 0.9% IVPB SCH; +[UNRECOGNIZED DRUG - OTHER] IVPB SCH
[2019-01-05] MEDS ORDERED: Sodium Chloride 0.9% 20 ML ONE (10:05)
[2019-01-05 11:14] VITALS: BP 136/79; TEMP 98.3
== END 2019-01-05 11:28 | disposition home or self-care (01) ==
LOC: ONC/OP 09:44
PROVIDERS: ATTEND Internal Medicine Hematology & Oncology
DX: Z51.11 Encounter for antineoplastic chemotherapy (principal); C54.1 Malignant neoplasm of endometrium
CPT/HCPCS: 96375; 96413; J1100; J1642; J2405; J7050; J9201

== ENCOUNTER 2019-01-12 08:38 | Day surgery (SDC) | payer SELFPAY ==
[~2019-01-12 08:38] MED LIST changes: +DOCETAXEL IVPB SCH; +Palonosetron HCl 0.25 MG in Sodium Chloride 0.9% 50 ML IVPB SCH
[2019-01-12] MEDS ORDERED: Sodium Chloride 0.9% 20 ML ONE (08:47)
[2019-01-12 12:07] VITALS: BP 127/80; TEMP 98.5
== END 2019-01-12 16:21 | disposition home or self-care (01) ==
LOC: ONC/OP 08:38
PROVIDERS: ATTEND Internal Medicine Hematology & Oncology
DX: Z51.11 Encounter for antineoplastic chemotherapy (principal); C54.1 Malignant neoplasm of endometrium
CPT/HCPCS: 96375; 96413; 96417; J1100; J1642; J2469; J7050; J9171; J9201

== ENCOUNTER 2019-01-13 12:23 | Day surgery (SDC) | payer OTHER, SELFPAY ==
[~2019-01-13 12:23] MED LIST changes: -DEXAMETHASONE SOD PHOSPHATE IVPB SCH; -DOCETAXEL IVPB SCH; -GEMCITABINE HCL IVPB SCH; -ONDANSETRON HCL IVPB SCH; +PEGFILGRASTIM-JMDB 6 MG/0.6 ML SYRINGE SQ SCH; -Palonosetron HCl 0.25 MG in Sodium Chloride 0.9% 50 ML IVPB SCH; -SODIUM CHLORIDE 0.9% IVPB SCH; -[UNRECOGNIZED DRUG - OTHER] IVPB SCH
[2019-01-13 12:45] VITALS: BP 137/82; TEMP 98.1
== END 2019-01-13 12:45 | disposition home or self-care (01) ==
LOC: ONC/OP 12:23
PROVIDERS: ATTEND Internal Medicine Hematology & Oncology
DX: Z51.11 Encounter for antineoplastic chemotherapy (principal); C54.1 Malignant neoplasm of endometrium
CPT/HCPCS: 96372; Q5108

== ENCOUNTER 2019-01-26 12:44 | Day surgery (SDC) | payer OTHER ==
[~2019-01-26 12:44] MED LIST changes: +Dexamethasone Sod Phosphate 10 MG, Ondansetron 2MG/ML MDV 10 MG in Sodium Chloride 0.9%... IVPB SCH; +GEMCITABINE HCL IVPB SCH; +Iopamidol 300 61% 50 ML VIAL FS ONE; -PEGFILGRASTIM-JMDB 6 MG/0.6 ML SYRINGE SQ SCH; +SODIUM CHLORIDE 0.9% IVPB SCH
--- NOTE | 2019-01-26 14:19 | RAD ---
Fluoroscopic vascular access port check HISTORY: No blood return from left internal jugular Mediport. Uterine sarcoma. FINDINGS: Using the Fernandes needle already in place at the left internal jugular Mediport, approximatel y 5 mL of Isovue contrast was carefully instilled under fluoroscopic control. The tip of the catheter is at the level of the superior vena cava. The contrast material exited the distal tip of th e catheter and tracks retrograde within the sheath around the catheter, approximately 3 cm. The contrast then flows into the left subclavian vein and then towards the superior vena cava. Catheter was flushed with heparinized saline. Patient tolerated the procedure well and was returned i n good condition. IMPRESSION: Fibrous sheath surrounding the distal 3 cm of the left internal jugular Mediport. Injecte d contrast did flow into the left subclavian vein. Findings were called to Dr. Abrams at the time of the exam. Code CR. Transcribed Date/Time: 01/26/2019 2:41 PM
== END 2019-01-26 16:14 | disposition home or self-care (01) ==
LOC: ONC/OP 12:44
PROVIDERS: ATTEND Internal Medicine Hematology & Oncology
DX: Z51.11 Encounter for antineoplastic chemotherapy (principal); C54.1 Malignant neoplasm of endometrium
CPT/HCPCS: 36598; 96375; 96413; J1100; J1642; J2405; J7050; J9201; Q9967

== ENCOUNTER 2019-02-02 08:58 | Day surgery (SDC) | payer OTHER, SELFPAY ==
[~2019-02-02 08:58] MED LIST changes: +DOCETAXEL IVPB SCH; -Dexamethasone Sod Phosphate 10 MG, Ondansetron 2MG/ML MDV 10 MG in Sodium Chloride 0.9%... IVPB SCH; -Iopamidol 300 61% 50 ML VIAL FS ONE; +Palonosetron HCl 0.25 MG in Sodium Chloride 0.9% 50 ML IVPB SCH
[2019-02-02] MEDS ORDERED: Sodium Chloride 0.9% 20 ML ONE (09:03)
[2019-02-02 10:25] VITALS: BP 121/68; TEMP 98.9
== END 2019-02-02 12:11 | disposition home or self-care (01) ==
LOC: ONC/OP 08:58
PROVIDERS: ATTEND Internal Medicine Hematology & Oncology
DX: Z51.11 Encounter for antineoplastic chemotherapy (principal); C54.1 Malignant neoplasm of endometrium
CPT/HCPCS: 96375; 96413; 96417; J1100; J1642; J2469; J7050; J9171; J9201

== ENCOUNTER 2019-02-03 09:28 | Day surgery (SDC) | payer OTHER ==
[~2019-02-03 09:28] MED LIST changes: -DOCETAXEL IVPB SCH; -GEMCITABINE HCL IVPB SCH; +PEGFILGRASTIM-JMDB 6 MG/0.6 ML SYRINGE SQ SCH; -Palonosetron HCl 0.25 MG in Sodium Chloride 0.9% 50 ML IVPB SCH; -SODIUM CHLORIDE 0.9% IVPB SCH
[2019-02-03 15:52] VITALS: BP 160/74; TEMP 98.5
== END 2019-02-03 15:53 | disposition home or self-care (01) ==
LOC: ONC/OP 09:28
PROVIDERS: ATTEND Internal Medicine Hematology & Oncology
DX: Z51.12 Encounter for antineoplastic immunotherapy (principal); C54.1 Malignant neoplasm of endometrium
CPT/HCPCS: 96372; Q5108

== ENCOUNTER 2019-02-24 10:54 | Day surgery (SDC) | payer OTHER ==
[~2019-02-24 10:54] MED LIST changes: +Dexamethasone Sod Phosphate 10 MG, Ondansetron 2MG/ML MDV 10 MG in Sodium Chloride 0.9%... IVPB SCH; +GEMCITABINE HCL IVPB SCH; +Ondansetron HCl/PF 10 MG in Sodium Chloride 0.9% 50 ML IVPB SCH; -PEGFILGRASTIM-JMDB 6 MG/0.6 ML SYRINGE SQ SCH; +SODIUM CHLORIDE 0.9% IVPB SCH
[2019-02-24] MEDS ORDERED: Sodium Chloride 0.9% 20 ML ONE (11:22)
[2019-02-24 12:50] VITALS: BP 127/88; TEMP 98.5
== END 2019-02-24 13:30 | disposition home or self-care (01) ==
LOC: ONC/OP 10:54
PROVIDERS: ATTEND Internal Medicine Hematology & Oncology
DX: Z51.11 Encounter for antineoplastic chemotherapy (principal); C54.1 Malignant neoplasm of endometrium
CPT/HCPCS: 96375; 96413; J1100; J1642; J2405; J7050; J9201

== ENCOUNTER 2019-03-03 10:00 | Day surgery (SDC) | payer OTHER ==
[~2019-03-03 10:00] MED LIST changes: +DOCETAXEL IVPB SCH; -Dexamethasone Sod Phosphate 10 MG, Ondansetron 2MG/ML MDV 10 MG in Sodium Chloride 0.9%... IVPB SCH; -Ondansetron HCl/PF 10 MG in Sodium Chloride 0.9% 50 ML IVPB SCH; +Palonosetron HCl 0.25 MG in Sodium Chloride 0.9% 50 ML IVPB SCH
[2019-03-03] MEDS ORDERED: Activase 2 MG VIAL CATH SCH (10:30)
[2019-03-03] MEDS ORDERED: Sodium Chloride 0.9% 20 ML ONE (12:16)
== END 2019-03-03 16:32 | disposition home or self-care (01) ==
LOC: ONC/OP 10:00
PROVIDERS: ATTEND Internal Medicine Hematology & Oncology
DX: Z51.11 Encounter for antineoplastic chemotherapy (principal); C54.1 Malignant neoplasm of endometrium
CPT/HCPCS: 96367; 96375; 96413; 96417; J1100; J1453; J1642; J2469; J2997; J3490; J7050; J9171; J9201

== ENCOUNTER 2019-03-04 12:17 | Day surgery (SDC) | payer OTHER ==
[~2019-03-04 12:17] MED LIST changes: -DOCETAXEL IVPB SCH; -GEMCITABINE HCL IVPB SCH; +PEGFILGRASTIM-JMDB 6 MG/0.6 ML SYRINGE SQ SCH; -Palonosetron HCl 0.25 MG in Sodium Chloride 0.9% 50 ML IVPB SCH; -SODIUM CHLORIDE 0.9% IVPB SCH
[2019-03-04 13:19] VITALS: BP 137/73; TEMP 98.2
== END 2019-03-04 13:19 | disposition home or self-care (01) ==
LOC: ONC/OP 12:17
PROVIDERS: ATTEND Internal Medicine Hematology & Oncology
DX: C54.1 Malignant neoplasm of endometrium (principal)
CPT/HCPCS: 96372; Q5108

== ENCOUNTER 2019-04-08 08:05 | Outpatient (CLI) | payer OTHER, SELFPAY ==
--- NOTE | 2019-04-08 09:36 | CT ---
CT OF THE CHEST, ABDOMEN AND PELVIS WITH IV CONTRAST INDICATION: History of metastatic uterine cancer COMPARISON: CT of the chest, abdomen and pelvis with contrast dated December 20, 2018 FINDINGS: CHEST: Lungs: Scattered pulmonary metastatic disease is stable. An index nodule within the anterior left low er lobe on image 44 series 3 measures 2.3 cm. This is relatively stable to the prior exam. Index nodule within the right lower lobe on image 32 of series 3 measures 1.5 cm. Pleural space: No effusion. Mediastinum: Enlarged mediastinal lymph nodes are stable. There is an 11 mm prevascular lymph node on image 20 of series 2. There is a 1 cm right paratracheal lymph node on image 20 of series 2. Axilla: There is stable mildly prominent lymph nodes within the axillary regions bilaterally. ABDOMEN: Liver: Hepatic metastatic lesions are stable. The largest lesion is seen within segment 7 of the righ t hepatic lobe measuring 1.5 cm on image 52 of series 2. Additional 9 mm lesion is seen within segment 8 of the right hepatic lobe on image 46 of series 2. Gallbladder: Normal appearing. Pancreas: Normal. Adrenal glands: Normal. Spleen: Normal. Kidneys and ureters: Tiny subcentimeter cyst within the right kidney is stable appearing. No hydronep hrosis. Vasculature: Normal. Lymph nodes:No lymphadenopathy. Free fluid in abdomen:No free fluid is evident. PELVIS: Small and large bowel: Normal Appendix:Normal Bladder: Normal. Rectal and perirectal soft tissues:Normal. Reproductive structures: Surgically absent Free fluid in pelvis: No free fluid is evident. Lymphadenopathy pelvis: No definite pathologically enlarged lymph nodes are seen within the pelvis. T here are mildly prominent lymph nodes within the inguinal regions bilaterally that are relatively stable. One of the largest measures 1.1 cm on image 123 of series 2, in the left inguinal region. Thi s previously measured 1 cm. There is an additional 1.2 cm lymph node within the right inguinal region that is relatively stable appearing. Osseous structures: No acute osseous abnormality. No destructive osteolytic or osteoblastic lesion i s identified. There is scattered degenerative and osteoarthritic changes. Soft tissues:Mild anasarca IMPRESSION: 1. Stable pulmonary and hepatic metastatic disease. 2. Stable mildly prominent lymph nodes within the mediastinum, axillary and inguinal regions.
[2019-04-08] MEDS ORDERED: Iopamidol-370 76% 500 ML 1 ML ONE (11:59)
== END 2019-04-08 08:06 | disposition home or self-care (01) ==
LOC: BICCT 08:05
PROVIDERS: ATTEND Internal Medicine Hematology & Oncology
DX: C54.1 Malignant neoplasm of endometrium (principal); C78.7 Secondary malignant neoplasm of liver and intrahepatic bile duct; C78.00 Secondary malignant neoplasm of unspecified lung
CPT/HCPCS: 71260; 74177; Q9967

== ENCOUNTER 2019-07-05 08:07 | Outpatient (CLI) | payer OTHER ==
--- NOTE | 2019-07-05 09:13 | CT ---
EXAM: CT chest, abdomen, and pelvis with IV contrast: HISTORY: Metastatic uterine cancer. COMPARISON: 04/08/2019 FINDINGS: CT THORAX: Lungs: Scattered pulmonary nodules are again seen throughout the lungs bilaterally which are stable i n number. No new pulmonary nodule is identified. Some of the larger nodules appear to have decreased in size minimally when compared to the prior study. The largest pulmonary nodule within the anterior left lower lobe previously measured 23 mm in greatest dimension and now measures approximately 22 mm. Large right lower lobe pulmonary nodule previously measured 16 mm and now measur es 15 mm. Additional smaller pulmonary nodules also appear to be minimally diminished in size compared to prior exam. Pleura: No pleural effusion. Mediastinum: Prominent mediastinal lymph nodes are again seen. Previously measured prevascular space lymph node measuring 11 mm now measures 9 mm in short axis dimension. Right paratracheal lymph node previously measured 17 mm in short axis dimension and measures 13 mm on today's exam. Additional mild increased number of lymph nodes within the mediastinum are again present. No new enlarged lymph nodes are seen. Chest wall: No abnormalities CT ABDOMEN AND PELVIS: Liver: Right hepatic lobe hypodense lesion is again seen and overall similar in size measuring 15 to 16 mm in greatest dimension. Small 6 mm hypodense lesion is again seen in the anterior aspect of the medial segment left hepatic lobe. Questionable additional hypodense lesion seen in the posterior aspect left hepatic lobe; although, this may be related to volume averaging with the fissure. This is a stable finding. No new lesion is seen within the liver. Gallbladder: Within normal limits. \ Pancreas: Within normal limits. Spleen: Within normal limits. Adrenal glands: Within normal limits. Kidneys: Stable subcentimeter hypodense lesion midportion right kidney. Kidneys otherwise have a norm al CT appearance bilaterally. Urinary Bladder: Mostly decompressed but otherwise grossly within normal limits. Reproductive organs: Evidence of hysterectomy. Bowel: Normal in caliber. Adenopathy:Mildly prominent bilateral inguinal lymph nodes are again noted and stable in size and nathaniel earance as well as number. Peritoneum: No free fluid or fluid collection is seen. No free intraperitoneal gas is identified. Abdominal wall: Midline scarring in a supraumbilical and infraumbilical location with small fat-conta ining umbilical hernia. Osseous structures: No suspicious lytic or sclerotic osseous lesions are identified. IMPRESSION: 1. Metastatic disease with bilateral pulmonary nodules which are stable in number, and some of the pu lmonary nodules measure slightly smaller in size. 2. Overall stable hepatic metastatic lesions. 3. Mildly prominent lymph nodes within the mediastinum and each inguinal region. Larger mediastinal l ymph nodes measure slightly smaller in size in short axis dimension.
[2019-07-05] MEDS ORDERED: Iopamidol-370 76% 500 ML 1 ML ONE (09:18)
== END 2019-07-05 08:08 | disposition home or self-care (01) ==
LOC: BICCT 08:07
PROVIDERS: ATTEND Internal Medicine Hematology & Oncology
DX: C54.1 Malignant neoplasm of endometrium (principal); C78.7 Secondary malignant neoplasm of liver and intrahepatic bile duct
CPT/HCPCS: 71260; 74177; Q9967

== ENCOUNTER 2021-01-01 09:41 | Outpatient (CLI) | payer MEDICARE ==
[2021-01-01] MEDS ORDERED: Iopamidol-370 76% 500 ML 1 ML ONE (10:03)
== END 2021-01-01 09:42 | disposition home or self-care (01) ==
LOC: BICCT 09:41
PROVIDERS: ATTEND Internal Medicine Hematology & Oncology
DX: C54.1 Malignant neoplasm of endometrium (principal); R59.0 Localized enlarged lymph nodes; Z90.710 Acquired absence of both cervix and uterus; Z90.79 Acquired absence of other genital organ(s)
CPT/HCPCS: 71260; 74177; Q9967

== ENCOUNTER 2021-04-03 08:44 | Outpatient (CLI) | payer MEDICARE ==
[2021-04-03] MEDS ORDERED: Iopamidol-370 76% 500 ML 1 ML ONE (10:22)
== END 2021-04-03 08:45 | disposition home or self-care (01) ==
LOC: BICCT 08:44
PROVIDERS: ATTEND Internal Medicine Hematology & Oncology
DX: C54.1 Malignant neoplasm of endometrium (principal); R91.8 Other nonspecific abnormal finding of lung field; R59.0 Localized enlarged lymph nodes; K76.9 Liver disease, unspecified
CPT/HCPCS: 71260; 74177; Q9967

== ENCOUNTER 2021-04-05 13:17 | Outpatient (CLI) | payer MEDICARE | END 2021-04-05 13:18 | disposition home or self-care (01) | LOC: RAD 13:17 | PROVIDERS: ATTEND Internal Medicine Hematology & Oncology | DX: Z45.2 Encounter for adjustment and management of vascular access device (principal); T82.598A Other mechanical complication of other cardiac and vascular devices and implants, initial encounter | CPT/HCPCS: 36598 ==

== ENCOUNTER 2021-06-25 09:36 | Outpatient (CLI) | payer MEDICARE ==
[~2021-06-25 09:36] MED LIST changes: +Iopamidol 370 76% 100 ML VIAL ONE; -PEGFILGRASTIM-JMDB 6 MG/0.6 ML SYRINGE SQ SCH
== END 2021-06-25 09:37 | disposition home or self-care (01) ==
LOC: CT 09:36
PROVIDERS: ATTEND Internal Medicine Hematology & Oncology
DX: C54.1 Malignant neoplasm of endometrium (principal); R91.8 Other nonspecific abnormal finding of lung field; K76.9 Liver disease, unspecified
CPT/HCPCS: 71260; 74177; Q9967